=== PATIENT | male | born 1970 | race Caucasian/White ===

== ENCOUNTER → 2020-03-01 | Outpatient (CLI) | payer OTHER ==
[~2020-03-01] MED LIST: CEPH500 PO; GLIM2 PO; SITA25T2 PO
[2020-03-01 17:46] LABS: BASOPHILS ABSOLUTE AUTO 0.05 K/mm3 (0.00-0.23); BASOPHILS PERCENT AUTO 1 % (0-2); EOSINOPHILS ABSOLUTE AUTO 0.07 K/mm3 (0.00-0.68); EOSINOPHILS PERCENT AUTO 1 % (0-6); Hematocrit 44.2 % (37.0-53.0); Hemoglobin 14.4 g/dL (13.5-17.5); IMMATURE GRAN ABSOLUTE AUTO 0.04 K/mm3 (0.00-0.10); IMMATURE GRAN PERCENT AUTO 1 % (0-1); LYMPHOCYTES ABSOLUTE AUTO 1.18 K/mm3 (0.84-5.20); LYMPHOCYTES PERCENT AUTO 14 % (21-46); MONOCYTES ABSOLUTE AUTO 0.59 K/mm3 (0.16-1.47); MONOCYTES PERCENT AUTO 7 % (4-13); Mean Corpuscular HGB 28.6 pg (26.0-34.0); Mean Corpuscular HGB Conc 32.6 g/dL (31.5-36.5); Mean Corpuscular Volume 88 fL (80-100); Mean Platelet Volume 10.4 fL (9.1-12.4); NEUTROPHILS ABSOLUTE AUTO 6.32 K/mm3 (1.96-9.15); NEUTROPHILS PERCENT AUTO 77 % (41-73); Platelet Count 291 K/mm3 (150-400); RDW Coefficient Variation 12.4 % (11.7-14.2); Red Blood Cell Count 5.03 M/mm3 (4.30-5.90); White Blood Cell Count 8.25 K/mm3 (4.00-11.30)
[2020-03-01 18:09] LABS: Alanine Aminotransfer (ALT/SGP 34 U/L (12-78); Albumin, Blood 3.6 g/dL (3.4-5.0); Alk Phos 103 U/L (50-136); Anion Gap 8 mmol/L (6-16); Aspartate Aminotrans (AST/SGOT 18 U/L (12-37); Bilirubin, Total 0.4 mg/dL (0.1-1.0); Blood Urea Nitrogen 20 mg/dL (8-24); Bun/Creatinine Ratio 33.3 (12.0-20.0); CHOL/HDL RATIO 4.5; CO2, Blood 29 mmol/L (21-32); Calcium, Blood 8.8 mg/dL (8.5-10.1); Chloride, Blood 94 mmol/L (98-108); Cholesterol 233 mg/dL (50-200); Globulin, Blood 3.5 g/dL (2.2-4.0); Glomerular Filtration Rate >60 (60-); HDL Cholesterol 52 mg/dL (>39); LDL/HDL RATIO 2.2; Low Density Lipoprotein Chol 117 mg/dL (0-110); Potassium, Blood 4.6 mmol/L (3.5-5.5); Sodium, Blood 131 mmol/L (136-145); Total Protein, Blood 7.1 g/dL (6.4-8.2); Triglycerides 321 mg/dL (30-160); Very Low Density Lipoprot Chol 64 mg/dL (6-32)
[2020-03-01 18:11] LABS: Glucose, Blood 549 mg/dL (70-99)
== END | disposition home or self-care (01) ==
LOC: LAB SHORT 14:01 → LAB 14:01
PROVIDERS: Nurse Practitioner Family
DX: S11.90XA Unspecified open wound of unspecified part of neck, initial encounter (principal); S81.802A Unspecified open wound, left lower leg, initial encounter; S81.801A Unspecified open wound, right lower leg, initial encounter; S61.502A Unspecified open wound of left wrist, initial encounter; E11.65 Type 2 diabetes mellitus with hyperglycemia
CPT/HCPCS: 80053; 80061; 85025; 87070; 87077; 87147; 87186; 87205

== ENCOUNTER → 2020-09-19 | Outpatient (CLI) | payer OTHER ==
[~2020-09-19] MED LIST changes: +ACET325 PO; +ASPI81CH PO; +BANATROL PLUS1 EAC1 PO; +BASAGLAR K100 UNIT/6 SC; +BASAGLAR K100 UNIT/7; +CEFU500T30 PO; +CHOLESTYRAMI239.4 G1 PO; +CIPR500 PO; +CREON DR 12,001 EACH PO; +FLUDROCORTISON0.1 M1 PO; +FURO40 PO; +FUROSEMIDE40 MG PO; +GABA100 PO; +GLIP10ER PO; +IRON18 MG PO; +KLOR-CON 1010 ME1 PO; +LEVEMIR FL100 UNIT/2 SC; +LOPERAMIDE2 M3 PO; +METO25 PO; +MULTI-VITAMIN1 EAC2 PO; +NEURONTIN300 MG PO; +Novolog100 UNIT/2 SC; +POTCHL20ER PO; +TAMSULOSIN HCL0.4 M1 PO; +Vitamin C100 M1 PO
[2020-09-21 15:10] LABS: ADENOVIRUS F 40/41 Not Detected (Not Detected); ASTROVIRUS Not Detected (Not Detected); C DIFFICILE TOXIN A/B Detected (Not Detected); CRYPTOSPORIDIUM Not Detected (Not Detected); CYCLOSPORA CAYETANENSIS Not Detected (Not Detected); ENTAMOEBA HISTOLYTICA Not Detected (Not Detected); ENTEROAGGREGATIVE E COLI Not Detected (Not Detected); ENTEROPATHOGENIC E COLI Not Detected (Not Detected); ENTEROTOXIGENIC E COLI Not Detected (Not Detected); GIARDIA LAMBLIA Not Detected (Not Detected); NOROVIRUS GI/GII Not Detected (Not Detected); PLESIOMONAS SHIGELLOIDES Not Detected (Not Detected); ROTAVIRUS A Not Detected (Not Detected); SALMONELLA Not Detected (Not Detected); SAPOVIRUS Not Detected (Not Detected); SHIGA-TOXIN-PRODUCING E COLI Not Detected (Not Detected); SHIGELLA/ENTEROINVASIVE E COLI Not Detected (Not Detected); VIBRIO Not Detected (Not Detected); VIBRIO CHOLERAE Not Detected (Not Detected); YERSINIA ENTEROCOLITICA Not Detected (Not Detected)
== END | disposition home or self-care (01) ==
LOC: LAB SHORT 13:04 → LAB 13:04
PROVIDERS: Internal Medicine Gastroenterology
DX: R19.7 Diarrhea, unspecified (principal)
CPT/HCPCS: 0097U

== ENCOUNTER → 2020-11-06 | Outpatient (CLI) | payer BC, OTHER | LOC: LAB SHORT 10:25 → LAB 10:25 | DX: K51.90 Ulcerative colitis, unspecified, without complications (principal) | CPT/HCPCS: 87493 ==

== ENCOUNTER 2020-11-14 07:52 | Day surgery (SDC) | payer BC, SELFPAY ==
[~2020-11-14] VITALS: Ht 172.7 cm; Wt 66.2 kg
[~2020-11-14 07:52] MED LIST changes: -ACET325 PO; -ASPI81CH PO; -BANATROL PLUS1 EAC1 PO; -BASAGLAR K100 UNIT/6 SC; -CEFU500T30 PO; -CHOLESTYRAMI239.4 G1 PO; -CIPR500 PO; -CREON DR 12,001 EACH PO; -FLUDROCORTISON0.1 M1 PO; -FURO40 PO; -FUROSEMIDE40 MG PO; -GABA100 PO; -IRON18 MG PO; -KLOR-CON 1010 ME1 PO; -LEVEMIR FL100 UNIT/2 SC; -LOPERAMIDE2 M3 PO; -METO25 PO; -MULTI-VITAMIN1 EAC2 PO; -NEURONTIN300 MG PO; -POTCHL20ER PO; -TAMSULOSIN HCL0.4 M1 PO; -Vitamin C100 M1 PO
[2020-11-14] MEDS ORDERED: GABA100 PO (08:18)
--- NOTE | 2020-11-14 08:57 | NUR ---
11/14/20 0857 Abbey Bates History, Chart, Medications and Allergies reviewed before start of procedure.PATIENT DETERMINED TO BE ASA APPROPRIATE FOR PROPOFOL SEDATION PRIOR TO START OF PROCEDURE BY 3-LEAD EKG REVIEWED WITH PHYSICIAN PRIOR TO START OF PROCEDURE.MONITOR INTACT WITH CONTINUOUS PULSE OXIMETRY AND INTERMITTENT BP.
--- NOTE | 2020-11-14 09:54 | NUR ---
Discharge instructions reviewed with patient. Patient verbalizes understanding. Copy given to patient to take home. Patient States Post-Procedure ride home has been arranged.
--- NOTE | 2020-11-14 10:04 | NUR ---
Patient up to Ambulate independently. Gait steady. Discharged via wheelchair to private car for ride home.
[2021-02-11] MEDS ORDERED: MULTI-VITAMIN1 EAC2 PO (01:28)
[2021-02-11] MEDS ORDERED: IRON18 MG PO (01:29)
[2021-02-11] MEDS ORDERED: Vitamin C100 M1 PO (01:29)
[2021-02-13] MEDS ORDERED: BASAGLAR K100 UNIT/6 SC (11:43)
[2021-02-13] MEDS ORDERED: ACET325 PO (11:44)
[2021-02-13] MEDS ORDERED: FLUDROCORTISON0.1 M1 PO (11:44)
[2021-02-13] MEDS ORDERED: CREON DR 12,001 EACH PO (11:45)
[2021-02-13] MEDS ORDERED: LOPERAMIDE2 M3 PO (11:45)
[2021-02-13] MEDS ORDERED: CIPR500 PO (11:46)
[2021-02-13] MEDS ORDERED: BANATROL PLUS1 EAC1 PO (11:46)
== END 2020-11-14 10:08 | disposition home or self-care (01) ==
LOC: ORSCMMR 07:52 → ORD 09:00 → ORSCMMR 09:00
PROVIDERS: Internal Medicine Gastroenterology
PROC: 0DBN8ZX Excision of Sigmoid Colon, Via Natural or Artificial Opening Endoscopic, Diagnostic (ICD-10-PCS; principal; 2020-11-14 09:00)
PROC: 0DBC8ZX Excision of Ileocecal Valve, Via Natural or Artificial Opening Endoscopic, Diagnostic (ICD-10-PCS; principal; 2020-11-14 09:00)
PROC: 0DBK8ZX Excision of Ascending Colon, Via Natural or Artificial Opening Endoscopic, Diagnostic (ICD-10-PCS; principal; 2020-11-14 09:00)
PROC: 0DBL8ZX Excision of Transverse Colon, Via Natural or Artificial Opening Endoscopic, Diagnostic (ICD-10-PCS; principal; 2020-11-14 09:00)
DX: R19.7 Diarrhea, unspecified (principal); D12.2 Benign neoplasm of ascending colon; D12.3 Benign neoplasm of transverse colon; D12.5 Benign neoplasm of sigmoid colon; E11.9 Type 2 diabetes mellitus without complications; I10 Essential (primary) hypertension; E78.1 Pure hyperglyceridemia; Z79.899 Other long term (current) drug therapy
CPT/HCPCS: 82947; 88305; J2250; J2704; J7120

== ENCOUNTER 2021-01-17 15:22 | Emergency (ER) | payer BC, OTHER ==
[~2021-01-17] VITALS: Ht 172.7 cm; Wt 63.5 kg
[~2021-01-17 15:22] MED LIST changes: +GABA100 PO
[2021-01-17] MEDS ORDERED: ASPI81CH PO (17:16)
[2021-02-11] MEDS ORDERED: MULTI-VITAMIN1 EAC2 PO (01:28)
[2021-02-11] MEDS ORDERED: Vitamin C100 M1 PO (01:29)
[2021-02-11] MEDS ORDERED: IRON18 MG PO (01:29)
[2021-02-13] MEDS ORDERED: BASAGLAR K100 UNIT/6 SC (11:43)
[2021-02-13] MEDS ORDERED: FLUDROCORTISON0.1 M1 PO (11:44)
[2021-02-13] MEDS ORDERED: ACET325 PO (11:44)
[2021-02-13] MEDS ORDERED: LOPERAMIDE2 M3 PO (11:45)
[2021-02-13] MEDS ORDERED: CREON DR 12,001 EACH PO (11:45)
[2021-02-13] MEDS ORDERED: BANATROL PLUS1 EAC1 PO (11:46)
[2021-02-13] MEDS ORDERED: CIPR500 PO (11:46)
== END 2021-01-17 17:45 | disposition home or self-care (01) ==
LOC: ER 15:22
DX: I82.812 Embolism and thrombosis of superficial veins of left lower extremity (principal); E11.9 Type 2 diabetes mellitus without complications; Z79.4 Long term (current) use of insulin; Z79.82 Long term (current) use of aspirin
CPT/HCPCS: 93971; 99284-25

== ENCOUNTER 2021-02-05 17:43 | Emergency (ER) | payer BC ==
[~2021-02-05] VITALS: Ht 172.7 cm; Wt 64.0 kg
[~2021-02-05 17:43] MED LIST changes: +ASPI81CH PO
[2021-02-05 18:27] LABS: Source, Urine Catheter
[2021-02-05] MEDS ORDERED: NEURONTIN300 MG PO (18:32)
[2021-02-05] MEDS ORDERED: FUROSEMIDE40 MG PO (18:33)
[2021-02-05 18:34] LABS: Appearance, Urine Cloudy (Clear); Bilirubin, Urine Neg (Neg); Blood, Urine 3+ (Neg); Color, Urine Yellow (P-Yellow); Glucose Qualitative, Urine 4+ (Neg); Ketones, Urine Neg (Neg); Leukocyte Esterase, Urine 3+ (Neg); Nitrite, Urine Pos (Neg); Protein, Urine 3+ (Neg); Urobilinogen, Urine NORM (Normal)
[2021-02-05] MEDS ORDERED: LEVEMIR FL100 UNIT/2 SC (18:35)
[2021-02-05 18:36] LABS: BASOPHILS ABSOLUTE AUTO 0.07 K/mm3 (0.00-0.23); BASOPHILS PERCENT AUTO 1 % (0-2); EOSINOPHILS ABSOLUTE AUTO 0.16 K/mm3 (0.00-0.68); EOSINOPHILS PERCENT AUTO 1 % (0-6); Hematocrit 36.2 % (37.0-53.0); Hemoglobin 11.9 g/dL (13.5-17.5); IMMATURE GRAN ABSOLUTE AUTO 0.08 K/mm3 (0.00-0.10); IMMATURE GRAN PERCENT AUTO 1 % (0-1); LYMPHOCYTES ABSOLUTE AUTO 1.42 K/mm3 (0.84-5.20); LYMPHOCYTES PERCENT AUTO 11 % (21-46); MONOCYTES ABSOLUTE AUTO 0.84 K/mm3 (0.16-1.47); MONOCYTES PERCENT AUTO 6 % (4-13); Mean Corpuscular HGB 27.8 pg (26.0-34.0); Mean Corpuscular HGB Conc 32.9 g/dL (31.5-36.5); Mean Corpuscular Volume 85 fL (80-100); Mean Platelet Volume 8.7 fL (9.1-12.4); NEUTROPHILS ABSOLUTE AUTO 10.92 K/mm3 (1.96-9.15); NEUTROPHILS PERCENT AUTO 81 % (41-73); Platelet Count 601 K/mm3 (150-400); RDW Coefficient Variation 12.6 % (11.7-14.2); RDW Standard Deviation 39.3 fL (35.1-46.3); Red Blood Cell Count 4.28 M/mm3 (4.30-5.90); White Blood Cell Count 13.49 K/mm3 (4.00-11.30)
[2021-02-05] MEDS ORDERED: TAMSULOSIN HCL0.4 M1 PO (18:36)
[2021-02-05] MEDS ORDERED: KLOR-CON 1010 ME1 PO (18:36)
[2021-02-05 18:42] LABS: White Blood Cells, Urine TNTC /hpf (0-5)
[2021-02-05 18:43] LABS: Bacteria Many /hpf; Red Blood Cells, Urine Rare /hpf (0-2); Squamous Epithelial Cells Not Seen /hpf (Few); Triple Phosphate Crystals Mod /hpf
[2021-02-05 19:08] LABS: Alanine Aminotransfer (ALT/SGP 34 U/L (12-78); Albumin, Blood 2.5 g/dL (3.4-5.0); Albumin/Globulin Ratio 0.6 (0.8-1.8); Alk Phos 84 U/L (50-136); Anion Gap 4 mmol/L (6-16); Aspartate Aminotrans (AST/SGOT 13 U/L (12-37); Bilirubin, Total 0.1 mg/dL (0.1-1.0); Blood Urea Nitrogen 26 mg/dL (8-24); Bun/Creatinine Ratio 31.7 (12.0-20.0); CO2, Blood 28 mmol/L (21-32); Calcium, Blood 8.5 mg/dL (8.5-10.1); Chloride, Blood 102 mmol/L (98-108); Creatinine, Blood 0.82 mg/dL (0.60-1.20); Globulin, Blood 4.3 g/dL (2.2-4.0); Glomerular Filtration Rate >60 (60-); Glucose, Blood 384 mg/dL (70-99); Potassium, Blood 4.7 mmol/L (3.5-5.5); Sodium, Blood 134 mmol/L (136-145); Total Protein, Blood 6.8 g/dL (6.4-8.2)
[2021-02-05] MEDS ORDERED: CEFU500T30 PO (19:30)
== END 2021-02-05 19:46 | disposition home or self-care (01) ==
LOC: ER 17:43
PROVIDERS: Physician Assistant
DX: I95.1 Orthostatic hypotension (principal); T83.511A Infection and inflammatory reaction due to indwelling urethral catheter, initial encounter; Z88.8 Allergy status to other drugs, medicaments and biological substances; E11.65 Type 2 diabetes mellitus with hyperglycemia; Z79.4 Long term (current) use of insulin; Z79.899 Other long term (current) drug therapy
CPT/HCPCS: 36415; 51702; 80053; 81001; 82947; 83605; 85025; 87077; 87086; 87186; 93005; 93010; 96360; 99285-25; A9270; J7120

== ENCOUNTER 2021-03-02 05:14 | Inpatient (IN) | payer BC, OTHER ==
[~2021-03-02] VITALS: Ht 172.7 cm; Wt 75.0 kg
[~2021-03-02 05:14] MED LIST changes: +ACET325 PO; +BANATROL PLUS1 EAC1 PO; +BASAGLAR K100 UNIT/6 SC; +CEFU500T30 PO; +CIPR500 PO; +CREON DR 12,001 EACH PO; +FLUDROCORTISON0.1 M1 PO; +FUROSEMIDE40 MG PO; +IRON18 MG PO; +KLOR-CON 1010 ME1 PO; +LEVEMIR FL100 UNIT/2 SC; +LOPERAMIDE2 M3 PO; +MULTI-VITAMIN1 EAC2 PO; +NEURONTIN300 MG PO; +TAMSULOSIN HCL0.4 M1 PO; +Vitamin C100 M1 PO
[2021-03-02 05:58] LABS: BASOPHILS ABSOLUTE AUTO 0.04 K/mm3 (0.00-0.23); BASOPHILS PERCENT AUTO 1 % (0-2); EOSINOPHILS ABSOLUTE AUTO 0.24 K/mm3 (0.00-0.68); EOSINOPHILS PERCENT AUTO 5 % (0-6); Hematocrit 33.1 % (37.0-53.0); Hemoglobin 10.4 g/dL (13.5-17.5); IMMATURE GRAN ABSOLUTE AUTO 0.01 K/mm3 (0.00-0.10); IMMATURE GRAN PERCENT AUTO 0 % (0-1); LYMPHOCYTES ABSOLUTE AUTO 0.94 K/mm3 (0.84-5.20); LYMPHOCYTES PERCENT AUTO 18 % (21-46); MONOCYTES ABSOLUTE AUTO 0.53 K/mm3 (0.16-1.47); MONOCYTES PERCENT AUTO 10 % (4-13); Mean Corpuscular HGB 28.2 pg (26.0-34.0); Mean Corpuscular HGB Conc 31.4 g/dL (31.5-36.5); Mean Corpuscular Volume 90 fL (80-100); Mean Platelet Volume 9.4 fL (9.1-12.4); NEUTROPHILS PERCENT AUTO 66 % (41-73); Platelet Count 236 K/mm3 (150-400); RDW Coefficient Variation 16.4 % (11.7-14.2); RDW Standard Deviation 53.3 fL (35.1-46.3); Red Blood Cell Count 3.69 M/mm3 (4.30-5.90); White Blood Cell Count 5.16 K/mm3 (4.00-11.30)
[2021-03-02 06:18] LABS: Alanine Aminotransfer (ALT/SGP 87 U/L (12-78); Albumin, Blood 2.9 g/dL (3.4-5.0); Albumin/Globulin Ratio 0.9 (0.8-1.8); Alk Phos 100 U/L (50-136); Anion Gap 3 mmol/L (6-16); Aspartate Aminotrans (AST/SGOT 28 U/L (12-37); Bilirubin, Total 0.4 mg/dL (0.1-1.0); Blood Urea Nitrogen 19 mg/dL (8-24); Bun/Creatinine Ratio 25.3 (12.0-20.0); CO2, Blood 30 mmol/L (21-32); Calcium, Blood 8.7 mg/dL (8.5-10.1); Chloride, Blood 108 mmol/L (98-108); Creatinine, Blood 0.75 mg/dL (0.60-1.20); Globulin, Blood 3.3 g/dL (2.2-4.0); Glomerular Filtration Rate >60 (60-); Glucose, Blood 207 mg/dL (70-99); Potassium, Blood 3.6 mmol/L (3.5-5.5); Sodium, Blood 141 mmol/L (136-145); Total Protein, Blood 6.2 g/dL (6.4-8.2); Troponin I <0.015 ng/mL (0.000-0.040)
[2021-03-02 08:10] LABS: SARS-Cov-2 (COVID-19) PCR, MMC NEGATIVE (NEGATIVE)
[2021-03-02 17:29] LABS: U Amphetamine Screen Not Detected; U Barbituate Screen Not Detected; U Benzodiazapine Screen Not Detected; U Buprenorphine Screen Not Detected; U Cannabinoids Screen Not Detected; U Cocaine Screen Not Detected; U Methadone Screen Not Detected; U Methamphetamine Screen Not Detected; U Opiates Screen Not Detected; U Oxycodone Screen Not Detected; U Phencyclidine Screen Not Detected; U Propoxyphene Screen Not Detected
--- NOTE | 2021-03-02 18:45 | NUR ---
SHIFT SUMMARY PT ADMITTED TO UNIT AT 1028 THIS SHIFT FROM ED. RECEIVED REPORT FROM RADHA PACK. PT A&OX4, ABLE TO MAKE NEEDS KNOWN. PLEASANT AND COOPERATIVE TO CARE. NO C/O PAIN OR ANY DISCOMFORT. PT DENIES CP / N&V. PT CONT TO C/O SOB WITH EXERTION, PT ON O2 4LPM VIA NC. SATS >90%, LSCTA, OCCASSIONAL DRY COUGH NOTED. PT WITH AT BEDSIDE THIS SHIFT. PT SELF CATH's NEEDED FOR RETENTION. PT DENIES DYSURIA OR ANY OTHER DISCOMFORT. PT CALM AND RESTED IN BED AT THIS TIME. BED AT LOWEST POSITION. CALL LIGHT WITHIN REACH.
[2021-03-03 05:02] LABS: BASOPHILS ABSOLUTE AUTO 0.05 K/mm3 (0.00-0.23); BASOPHILS PERCENT AUTO 1 % (0-2); EOSINOPHILS ABSOLUTE AUTO 0.23 K/mm3 (0.00-0.68); EOSINOPHILS PERCENT AUTO 4 % (0-6); Hematocrit 33.2 % (37.0-53.0); Hemoglobin 10.3 g/dL (13.5-17.5); IMMATURE GRAN ABSOLUTE AUTO 0.02 K/mm3 (0.00-0.10); IMMATURE GRAN PERCENT AUTO 0 % (0-1); LYMPHOCYTES ABSOLUTE AUTO 1.08 K/mm3 (0.84-5.20); LYMPHOCYTES PERCENT AUTO 20 % (21-46); MONOCYTES ABSOLUTE AUTO 0.63 K/mm3 (0.16-1.47); MONOCYTES PERCENT AUTO 12 % (4-13); Mean Corpuscular HGB 28.3 pg (26.0-34.0); Mean Corpuscular Volume 91 fL (80-100); Mean Platelet Volume 11.3 fL (9.1-12.4); NEUTROPHILS ABSOLUTE AUTO 3.48 K/mm3 (1.96-9.15); NEUTROPHILS PERCENT AUTO 63 % (41-73); Platelet Count 185 K/mm3 (150-400); RDW Coefficient Variation 16.5 % (11.7-14.2); RDW Standard Deviation 54.8 fL (35.1-46.3); Red Blood Cell Count 3.64 M/mm3 (4.30-5.90); White Blood Cell Count 5.49 K/mm3 (4.00-11.30)
--- NOTE | 2021-03-03 05:22 | NUR ---
HISTORIC PRESERVATIONIST SUMMARY NO ACUTE CHANGES THIS SHIFT. PT AAOX4 AND PLEASANT. INDEPENDENT IN ROOM. REMAINS ON 4L O2 VIA NC. PITTING EDEMA STILL PRESENT IN BLE, RICKY HOSE IN PLACE. MEDICATED FOR PAIN X1 WITH TYLENOL AT BEDTIME. PT HAS SLEPT WELL SINCE. ADDED HUMIDIFIER TO O2 DRY AIR CAUSED BRIEF NOSE BLEED. VSS, WILL CONTINUE TO MONITOR.
[2021-03-03 05:27] LABS: Alanine Aminotransfer (ALT/SGP 64 U/L (12-78); Albumin, Blood 2.6 g/dL (3.4-5.0); Albumin/Globulin Ratio 0.8 (0.8-1.8); Alk Phos 87 U/L (50-136); Anion Gap 4 mmol/L (6-16); Aspartate Aminotrans (AST/SGOT 11 U/L (12-37); Bilirubin, Total 0.2 mg/dL (0.1-1.0); Blood Urea Nitrogen 19 mg/dL (8-24); Bun/Creatinine Ratio 23.4 (12.0-20.0); CO2, Blood 30 mmol/L (21-32); Calcium, Blood 7.9 mg/dL (8.5-10.1); Chloride, Blood 108 mmol/L (98-108); Creatinine, Blood 0.81 mg/dL (0.60-1.20); Globulin, Blood 3.3 g/dL (2.2-4.0); Glomerular Filtration Rate >60 (60-); Glucose, Blood 225 mg/dL (70-99); Potassium, Blood 3.8 mmol/L (3.5-5.5); Sodium, Blood 142 mmol/L (136-145); Total Protein, Blood 5.9 g/dL (6.4-8.2)
--- NOTE | 2021-03-03 17:58 | NUR ---
SHIFT SUMMARY PT A&OX4, ABLE TO MAKE NEEDS KNOWN. PLEASANT AND COOPERATIVE TO CARE. NO ACUTE CHANGES NOTED TO PT THIS SHIFT. NO C/O PAIN OR ANY DISCOMFORT, DENIES CP, SOB, OR N&V. PT CONTINUES ON HUMIDIFIED O2 4LPM VIA NC, SATS >92%. SELF CATHS NEEDED FOR RETENTION. RICKY HOSE IN PLACE TO BLE, EDEMA TO AA PRESENT. PT's AT BEDSIDE THIS AFTERNOON. BED AT LOWEST POSITION, CALL LIGHT WITHIN REACH.
[2021-03-04 05:15] LABS: Alanine Aminotransfer (ALT/SGP 57 U/L (12-78); Albumin, Blood 2.8 g/dL (3.4-5.0); Albumin/Globulin Ratio 0.8 (0.8-1.8); Alk Phos 95 U/L (50-136); Anion Gap 4 mmol/L (6-16); Aspartate Aminotrans (AST/SGOT 10 U/L (12-37); Bilirubin, Total 0.3 mg/dL (0.1-1.0); Blood Urea Nitrogen 16 mg/dL (8-24); Bun/Creatinine Ratio 23.6 (12.0-20.0); CO2, Blood 32 mmol/L (21-32); Calcium, Blood 8.1 mg/dL (8.5-10.1); Chloride, Blood 103 mmol/L (98-108); Creatinine, Blood 0.68 mg/dL (0.60-1.20); Globulin, Blood 3.7 g/dL (2.2-4.0); Glomerular Filtration Rate >60 (60-); Glucose, Blood 195 mg/dL (70-99); Potassium, Blood 3.6 mmol/L (3.5-5.5); Sodium, Blood 139 mmol/L (136-145); Total Protein, Blood 6.5 g/dL (6.4-8.2)
--- NOTE | 2021-03-04 06:04 | NUR ---
THERMO PROCESSOR SUMMARY PT AAOX4 AND INDEPENDENT IN ROOM. COMPLAINED OF MULITPLE EPISODES OF LOOSE STOOLS TONIGHT. NOTIFIED DR ORTIZ AND RECIEVED ORDER FOR IMODIUM PRN. NO OTHER COMPLAINTS FROM PT, HAS SLEPT WELL. VSS, WILL CONTINUE TO MONITOR.
--- NOTE | 2021-03-04 17:37 | NUR ---
SHIFT SUMMARY PT ALERT AND INDEPENDENT IN THE ROOM. SELF CATH NEEDED. PT STILL DIURESING. PT AT BEDSIDE. PT DENIES PAIN, MEDICATED FOR LOOSE STOOL TODAY. PT DENIES CP OR SOB. PT IS ON 4L O2. PT IS ON TELE NSR @ 80S. BED IS IN THE LOWEST POSITION AND CALL LIGHT WITHIN REACH
--- NOTE | 2021-03-05 04:45 | NUR ---
SHIFT SUMMARY NO ACUTE CHANGES TO REPORT THIS SHIFT. PT HAS RESTED MOST OF THE NIGHT, HE DENIES SOB. RESP E/U ON RA. OCCASIONAL NONPRODUCTIVE COUGH. SWELLING IN BLE IMPROVED SIGNIFICANTLY, PT RECEIVING IV LASIKS ORDERED. PT PULLED IV BY MISTAKE THIS SHIFT AFTER TAKING A SHOWER, NEW IV ESTABLISHED. PT INDEPENDENT IN THE ROOM, A/OX4. NSR ON TELE. BED IN LOWEST POSITION, CALL LIGHT WITHIN REACH.
[2021-03-05 05:31] LABS: Albumin, Blood 2.8 g/dL (3.4-5.0); Anion Gap 5 mmol/L (6-16); Blood Urea Nitrogen 16 mg/dL (8-24); CO2, Blood 32 mmol/L (21-32); Calcium, Blood 8.2 mg/dL (8.5-10.1); Chloride, Blood 101 mmol/L (98-108); Creatinine, Blood 0.84 mg/dL (0.60-1.20); Glomerular Filtration Rate >60 (60-); Glucose, Blood 202 mg/dL (70-99); Phosphorus, Blood 4.1 mg/dL (2.5-4.9); Potassium, Blood 3.8 mmol/L (3.5-5.5); Sodium, Blood 138 mmol/L (136-145)
--- NOTE | 2021-03-05 14:58 | NUR ---
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 Dominguez lives with his , and has had a hard time finding steady employment since being let go from a 20 year history at a local [employer]. He states he has had had to go without insulin occasionally. Dominguez has DM type 2, BPH, recurring syncopal episodes with unknown etiology,and he currently denies any pain. Will continue to monitor for neuropathy. He currently has insurance, so hopful he will continue to follow his current regimen. He denies pain at this time.
--- NOTE | 2021-03-05 17:53 | NUR ---
SHIFT SUMMARY PT ALERT AND INDEPENDENT IN THE ROOM. PT STILL HAVING SOME LOOSE BM; DENIES PAIN. PT IS NOW RA-SATS ABOVE 90S. AT BEDSIDE. DC'D TELE. NO OTHER CONCERNS NOTED DURING THIS SHIFT. BED IS IN THEE LOWEST POSITION AND CALL LIGHT WITHIN REACH
--- NOTE | 2021-03-06 04:14 | NUR ---
SHIFT SUMMARY PT HAS RESTED MOST OF THE NIGHT AND HAS DENIED NEEDS. PT SATS MAINTAINED ON RA WHILE AWAKE BUT DROP INTO THE UPPER 80'S WHEN SLEEPING. 2L O2 PLACE DURING THE NIGHT. PT CONTINUES TO HAVE DRY NONPRODUCTIVE COUGH. SWELLING TO BLE REMAINS IMPROVED. VITALS STABLE. PLAN IS FOR DC TODAY. BED IN LOWEST POSITION, CALL LIGHT WITHIN REACH.
[2021-03-06 04:57] LABS: Albumin, Blood 2.9 g/dL (3.4-5.0); Anion Gap 2 mmol/L (6-16); Blood Urea Nitrogen 19 mg/dL (8-24); Bun/Creatinine Ratio 23.1 (12.0-20.0); CO2, Blood 32 mmol/L (21-32); Calcium, Blood 8.3 mg/dL (8.5-10.1); Chloride, Blood 104 mmol/L (98-108); Creatinine, Blood 0.82 mg/dL (0.60-1.20); Glomerular Filtration Rate >60 (60-); Glucose, Blood 227 mg/dL (70-99); Phosphorus, Blood 3.6 mg/dL (2.5-4.9); Potassium, Blood 4.1 mmol/L (3.5-5.5); Sodium, Blood 138 mmol/L (136-145)
[2021-03-06] MEDS ORDERED: CHOLESTYRAMI239.4 G1 PO (10:11)
[2021-03-06] MEDS ORDERED: FURO40 PO (10:12)
[2021-03-06] MEDS ORDERED: POTCHL20ER PO (10:14)
[2021-03-06] MEDS ORDERED: METO25 PO (10:14)
--- NOTE | 2021-03-06 15:07 | NUR ---
DISCHARGE NOTE PT IV REMOVED BY THIS RN. DC DOCUMENTATION REVIEWED WITH PT WHO VERBALIZED AN UNDERSTANDING. PT IS AO. PT DRESSED SELF IN HOME CLOTHING. PT GATHERED BELONGINGS. PT LEFT FACILITY IN WHEELCHAIR WITH ANIMAL ATTENDANTS AND TRAINERS AND BELONGINGS PRESENT. PT HAS LEFT [facility].
== END 2021-03-06 14:30 | disposition home or self-care (01) | DRG 291 ==
LOC: ER 05:14 → MEDS 08:52 → ENPENDDIS 03-06 09:47 → MEDS 03-06 14:30
PROVIDERS: Emergency Medicine; Family Medicine; Internal Medicine; Nurse Practitioner Acute Care; Student in an Organized Health Care Education/Training Program; ADMIT Internal Medicine
DX: I11.0 Hypertensive heart disease with heart failure (principal); I50.21 Acute systolic (congestive) heart failure; J96.01 Acute respiratory failure with hypoxia; I82.812 Embolism and thrombosis of superficial veins of left lower extremity; Z66 Do not resuscitate; Z20.822 Contact with and (suspected) exposure to COVID-19; R19.7 Diarrhea, unspecified; N40.0 Benign prostatic hyperplasia without lower urinary tract symptoms; E78.5 Hyperlipidemia, unspecified; E11.40 Type 2 diabetes mellitus with diabetic neuropathy, unspecified; I82.562 Chronic embolism and thrombosis of left calf muscular vein; Z88.8 Allergy status to other drugs, medicaments and biological substances
CPT/HCPCS: 36415; 71045; 71260; 72141; 80048; 80053; 80069; 82947; 83036; 83605; 83735; 83880; 84145; 84484; 85025; 87040; 93005; 93010; 93971; 94761; 96365; 96366; 96367; 97110; 97161; 99285-25; A9270; J0456; J0696; J1650; J1940; J7050; Q9967; U0004

== ENCOUNTER 2021-05-14 21:55 | Observation (INO) | payer BC, OTHER ==
[~2021-05-14] VITALS: Ht 172.7 cm; Wt 75.5 kg
[~2021-05-14 21:55] MED LIST changes: +CHOLESTYRAMI239.4 G1 PO; +FURO40 PO; +METO25 PO; +POTCHL20ER PO
[2021-05-14 22:23] LABS: BASOPHILS ABSOLUTE AUTO 0.05 K/mm3 (0.00-0.23); BASOPHILS PERCENT AUTO 1 % (0-2); EOSINOPHILS ABSOLUTE AUTO 0.19 K/mm3 (0.00-0.68); EOSINOPHILS PERCENT AUTO 3 % (0-6); Hematocrit 39.6 % (37.0-53.0); Hemoglobin 13.1 g/dL (13.5-17.5); IMMATURE GRAN ABSOLUTE AUTO 0.02 K/mm3 (0.00-0.10); IMMATURE GRAN PERCENT AUTO 0 % (0-1); LYMPHOCYTES ABSOLUTE AUTO 1.57 K/mm3 (0.84-5.20); LYMPHOCYTES PERCENT AUTO 21 % (21-46); MONOCYTES ABSOLUTE AUTO 0.78 K/mm3 (0.16-1.47); MONOCYTES PERCENT AUTO 11 % (4-13); Mean Corpuscular HGB 27.8 pg (26.0-34.0); Mean Corpuscular HGB Conc 33.1 g/dL (31.5-36.5); Mean Corpuscular Volume 84 fL (80-100); Mean Platelet Volume 9.2 fL (9.1-12.4); NEUTROPHILS ABSOLUTE AUTO 4.85 K/mm3 (1.96-9.15); NEUTROPHILS PERCENT AUTO 65 % (41-73); Platelet Count 234 K/mm3 (150-400); RDW Coefficient Variation 14.2 % (11.7-14.2); RDW Standard Deviation 43.8 fL (35.1-46.3); Red Blood Cell Count 4.72 M/mm3 (4.30-5.90); White Blood Cell Count 7.46 K/mm3 (4.00-11.30)
[2021-05-14] MEDS ORDERED: LEVEMIR100 UNIT/1 SC (22:48)
[2021-05-14 22:49] LABS: Alanine Aminotransfer (ALT/SGP 34 U/L (12-78); Albumin, Blood 3.3 g/dL (3.4-5.0); Alk Phos 82 U/L (50-136); Anion Gap 3 mmol/L (6-16); Aspartate Aminotrans (AST/SGOT 11 U/L (12-37); Bilirubin, Total 0.2 mg/dL (0.1-1.0); Blood Urea Nitrogen 13 mg/dL (8-24); Bun/Creatinine Ratio 13.5 (12.0-20.0); CO2, Blood 32 mmol/L (21-32); Calcium, Blood 8.2 mg/dL (8.5-10.1); Chloride, Blood 109 mmol/L (98-108); Creatinine, Blood 0.96 mg/dL (0.60-1.20); Globulin, Blood 3.3 g/dL (2.2-4.0); Glomerular Filtration Rate >60 (60-); Glucose, Blood 108 mg/dL (70-99); Potassium, Blood 3.7 mmol/L (3.5-5.5); Sodium, Blood 144 mmol/L (136-145); Total Protein, Blood 6.6 g/dL (6.4-8.2); Troponin I <0.015 ng/mL (0.000-0.040)
[2021-05-14] MEDS ORDERED: HUMALOG100 UNIT/1 SC (22:49)
[2021-05-15] MEDS ORDERED: LOPE2C PO (01:23)
--- NOTE | 2021-05-15 04:48 | NUR ---
SHIFT SUMMARY PT ER ADMIT THIS SHIFT FOR CHEST PAIN, CHEST PAIN HAS RESOLVED AND HE HAS DENIED CHEST PAIN SINCE ARRIVING TO THE FLOOR. TELE IN PLACE WITH NSR. PT INDEPENDENT IN THE ROOM. SELF CATHS, SUPPLIES PROVIDED TO PT. O2 2L AT BEDTIME, PT BASELINE. PLAN IS FOR STRESS TEST TODAY. ADMISSION COMPLETE. BED IN LOWEST POSITION, CALL LIGHT WITHIN REACH.
--- NOTE | 2021-05-15 08:54 | NUR ---
pt laying in bed awake a/ox3, cooperative with care, follows commands well, denies pain, lungs are clear dim in bases, resp even and unlabored, no cough noted, uses 2liters 02 at hs at home, hrr, tele in place running sr per monitor, see strip, no edema noted, ppp+2, cap refill <3sec, vs stable, afebrile, iv site to lac clear and patent, btx4, abd flat soft nontender, voids without diff, skin c/w/d, maew, audie, call light in reach.
--- NOTE | 2021-05-15 11:06 | NUR ---
pt is angry because the stress test didn't happen at 0800, no one told him it would be at that time, he is a bit irrational, became very angry with operations label clerk drawing blood because he wanted her to draw an outpt test that his pcp ordered and he has not had done yet, she attempted to explain to him that the DrAnkit needs to order it, but he became very angry and refused to allow her to remove the tourniquit. this nurse checked and he removed it. Dr. Kumar was in to see him, he was still angry about the test he wants done. he was able to eat a bit after being injected for his stress test and is calmed down some. call light in reach.
--- NOTE | 2021-05-15 14:48 | NUR ---
pt having stress test. has been calm and cooperative this afternoon.
--- NOTE | 2021-05-15 18:28 | NUR ---
PT GOT VERY NAUSEATED AFTER INJECTION FOR STRESS TEST AND HAD ACTIVE VOMITING, DID NOTIFY DR. SHE CAME TO SEE HIM, GAVE HIM PRN DOSE OF HYDRALAZINE FOR HIGH B/P AND IV ZOFRAN WHICH WAS EFFECTIVE, SLEPT AFTER THAT, AND IS FEELING BETTER NOW, AT BEDSIDE, IS EATING DINNER. DID HAVE DISCHARGE ORDERS ON HIM, DR. LOPEZ SPOKE WITH HIM AND WILL KEEP HIM OVERNIGHT. CALL LIGHT IN REACH.
--- NOTE | 2021-05-16 04:51 | NUR ---
SHIFT SUMMARY A/O, ABLE TO MAKE NEEDS KNOWN. COOPERATIVE WITH CARE. CALLS AND ANSWERS QUESTIONS APPROPRIATELY. NO C/O PAIN/DISCOMFORT. APPEARED TO REST MUCH OF THE NIGHT. ST IN 100's MUCH OF THE NIGHT ON TELE. UP INDEPENDENTLY IN ROOM AND BATHROOM. NO EPISODES OF ABDOMINAL PAIN/EMESIS. NO AUCTE CHANGES NOTED OVERNIGHT. BED REMAINS IN LOWEST POSITION. CALL LIGHT AND BELONGINGS WITHIN REACH. REPORT TO ONCOMING RN.
[2021-05-16] MEDS ORDERED: Prinivil10 MG PO (14:03)
--- NOTE | 2021-05-16 14:56 | NUR ---
DISCHARGE DISCHARGE MEDICATIONS AND INSTRUCTIONS EXPLAINED TO PATIENT AND SPOUSE. THEY STATED UNDERSTANDING. PCP FOLLOW UP SCHEDULED. IV REMOVED WITHOUT ISSUE. BELONGINGS WITH PATIENT. PATIENT TRANSFERED TO PRIVATE VEHICLE VIA WHEELCHAIR.
== END 2021-05-16 14:41 | disposition home or self-care (01) ==
LOC: ER 21:55 → MEDS 23:37
PROVIDERS: Emergency Medicine; ADMIT Family Medicine
DX: R07.9 Chest pain, unspecified (principal); N40.0 Benign prostatic hyperplasia without lower urinary tract symptoms; E11.40 Type 2 diabetes mellitus with diabetic neuropathy, unspecified; I50.30 Unspecified diastolic (congestive) heart failure; E78.5 Hyperlipidemia, unspecified; D64.9 Anemia, unspecified; K52.9 Noninfective gastroenteritis and colitis, unspecified; M79.2 Neuralgia and neuritis, unspecified; R03.0 Elevated blood-pressure reading, without diagnosis of hypertension; R55 Syncope and collapse; R00.0 Tachycardia, unspecified; I95.1 Orthostatic hypotension; Z79.4 Long term (current) use of insulin; Z88.8 Allergy status to other drugs, medicaments and biological substances; Z91.041 Radiographic dye allergy status
CPT/HCPCS: 36415; 71045; 78452; 80053; 82947; 83516; 83880; 84484; 85025; 85379; 93005; 93010; 93017; 96374; 96376; 99285-25; A9270; A9500; G0378; J0360; J0706; J1815; J2405; J2785

== ENCOUNTER → 2021-07-10 | Outpatient (CLI) | payer BC, OTHER ==
[~2021-07-10] MED LIST changes: +HUMALOG100 UNIT/1 SC; +LEVEMIR100 UNIT/1 SC; +LOPE2C PO; +Prinivil10 MG PO
== END | disposition home or self-care (01) ==
LOC: LAB SHORT 09:40 → LAB 09:40
DX: E11.40 Type 2 diabetes mellitus with diabetic neuropathy, unspecified (principal)
CPT/HCPCS: 82043

== ENCOUNTER 2021-07-27 19:01 | Emergency (ER) | payer BC, OTHER ==
[~2021-07-27] VITALS: Ht 172.7 cm; Wt 69.8 kg
[2021-07-27 20:07] LABS: BASOPHILS ABSOLUTE AUTO 0.06 K/mm3 (0.00-0.23); BASOPHILS PERCENT AUTO 1 % (0-2); EOSINOPHILS ABSOLUTE AUTO 0.23 K/mm3 (0.00-0.68); EOSINOPHILS PERCENT AUTO 3 % (0-6); Hematocrit 45.5 % (37.0-53.0); Hemoglobin 15.1 g/dL (13.5-17.5); IMMATURE GRAN ABSOLUTE AUTO 0.02 K/mm3 (0.00-0.10); IMMATURE GRAN PERCENT AUTO 0 % (0-1); LYMPHOCYTES ABSOLUTE AUTO 1.97 K/mm3 (0.84-5.20); LYMPHOCYTES PERCENT AUTO 24 % (21-46); MONOCYTES ABSOLUTE AUTO 0.57 K/mm3 (0.16-1.47); MONOCYTES PERCENT AUTO 7 % (4-13); Mean Corpuscular HGB 28.5 pg (26.0-34.0); Mean Corpuscular HGB Conc 33.2 g/dL (31.5-36.5); Mean Corpuscular Volume 86 fL (80-100); Mean Platelet Volume 9.3 fL (9.1-12.4); NEUTROPHILS ABSOLUTE AUTO 5.47 K/mm3 (1.96-9.15); NEUTROPHILS PERCENT AUTO 66 % (41-73); Platelet Count 308 K/mm3 (150-400); RDW Coefficient Variation 13.4 % (11.7-14.2); RDW Standard Deviation 41.2 fL (35.1-46.3); White Blood Cell Count 8.32 K/mm3 (4.00-11.30)
[2021-07-27 20:10] LABS: Anion Gap 4 mmol/L (6-16); Blood Urea Nitrogen 27 mg/dL (8-24); Bun/Creatinine Ratio 32.2 (12.0-20.0); CO2, Blood 30 mmol/L (21-32); Chloride, Blood 102 mmol/L (98-108); Creatinine, Blood 0.84 mg/dL (0.60-1.20); Glomerular Filtration Rate >60 (60-); Glucose, Blood 211 mg/dL (70-99); Potassium, Blood 4.5 mmol/L (3.5-5.5); Sodium, Blood 136 mmol/L (136-145)
== END 2021-07-27 21:48 | disposition home or self-care (01) ==
LOC: ER 19:01
PROVIDERS: Emergency Medicine
DX: I95.1 Orthostatic hypotension (principal); E11.9 Type 2 diabetes mellitus without complications; Z88.8 Allergy status to other drugs, medicaments and biological substances; Z79.4 Long term (current) use of insulin; Z79.82 Long term (current) use of aspirin; Z79.899 Other long term (current) drug therapy
CPT/HCPCS: 80048; 82947; 85025; 93005; 93010; 99284-25; J7030

== ENCOUNTER 2021-10-18 13:52 | Day surgery (SDC) | payer BC, OTHER | END 2021-10-18 23:44 | disposition home or self-care (01) | LOC: WOUND 13:52 | DX: T22.211A Burn of second degree of right forearm, initial encounter (principal); X08.8XXA Exposure to other specified smoke, fire and flames, initial encounter; S51.811A Laceration without foreign body of right forearm, initial encounter; X58.XXXA Exposure to other specified factors, initial encounter; E11.621 Type 2 diabetes mellitus with foot ulcer; L97.422 Non-pressure chronic ulcer of left heel and midfoot with fat layer exposed; L89.893 Pressure ulcer of other site, stage 3; L89.892 Pressure ulcer of other site, stage 2; I87.2 Venous insufficiency (chronic) (peripheral); E11.51 Type 2 diabetes mellitus with diabetic peripheral angiopathy without gangrene; E11.42 Type 2 diabetes mellitus with diabetic polyneuropathy; Z79.4 Long term (current) use of insulin; I25.10 Atherosclerotic heart disease of native coronary artery without angina pectoris; Z88.8 Allergy status to other drugs, medicaments and biological substances | CPT/HCPCS: G0463 ==

== ENCOUNTER 2021-10-18 15:47 | Emergency (ER) | payer OTHER ==
[~2021-10-18] VITALS: Ht 172.7 cm; Wt 75.8 kg
[2021-10-18 16:38] LABS: BASOPHILS ABSOLUTE AUTO 0.04 K/mm3 (0.00-0.23); BASOPHILS PERCENT AUTO 1 % (0-2); EOSINOPHILS ABSOLUTE AUTO 0.18 K/mm3 (0.00-0.68); EOSINOPHILS PERCENT AUTO 2 % (0-6); Hematocrit 46.2 % (37.0-53.0); Hemoglobin 15.6 g/dL (13.5-17.5); IMMATURE GRAN ABSOLUTE AUTO 0.01 K/mm3 (0.00-0.10); IMMATURE GRAN PERCENT AUTO 0 % (0-1); LYMPHOCYTES ABSOLUTE AUTO 1.62 K/mm3 (0.84-5.20); LYMPHOCYTES PERCENT AUTO 20 % (21-46); MONOCYTES ABSOLUTE AUTO 0.65 K/mm3 (0.16-1.47); MONOCYTES PERCENT AUTO 8 % (4-13); Mean Corpuscular HGB 28.9 pg (26.0-34.0); Mean Corpuscular HGB Conc 33.8 g/dL (31.5-36.5); Mean Corpuscular Volume 86 fL (80-100); Mean Platelet Volume 9.3 fL (9.1-12.4); NEUTROPHILS ABSOLUTE AUTO 5.56 K/mm3 (1.96-9.15); NEUTROPHILS PERCENT AUTO 69 % (41-73); Platelet Count 274 K/mm3 (150-400); RDW Coefficient Variation 12.8 % (11.7-14.2); RDW Standard Deviation 39.6 fL (35.1-46.3); Red Blood Cell Count 5.39 M/mm3 (4.30-5.90); White Blood Cell Count 8.06 K/mm3 (4.00-11.30)
[2021-10-18 17:10] LABS: Alanine Aminotransfer (ALT/SGP 25 U/L (12-78); Albumin, Blood 3.6 g/dL (3.4-5.0); Albumin/Globulin Ratio 0.9 (0.8-1.8); Alk Phos 110 U/L (50-136); Anion Gap 5 mmol/L (6-16); Aspartate Aminotrans (AST/SGOT 22 U/L (12-37); Bilirubin, Total 0.6 mg/dL (0.1-1.0); Blood Urea Nitrogen 20 mg/dL (8-24); Bun/Creatinine Ratio 21.4 (12.0-20.0); CO2, Blood 30 mmol/L (21-32); Calcium, Blood 9.3 mg/dL (8.5-10.1); Chloride, Blood 100 mmol/L (98-108); Creatinine, Blood 0.93 mg/dL (0.60-1.20); Globulin, Blood 4.2 g/dL (2.2-4.0); Glomerular Filtration Rate >60 (60-); Glucose, Blood 300 mg/dL (70-99); Potassium, Blood 4.8 mmol/L (3.5-5.5); Sodium, Blood 135 mmol/L (136-145); Total Protein, Blood 7.8 g/dL (6.4-8.2)
== END 2021-10-18 18:45 | disposition home or self-care (01) ==
LOC: ER 15:47
PROVIDERS: Physician Assistant
DX: I95.9 Hypotension, unspecified (principal); E86.0 Dehydration; E11.9 Type 2 diabetes mellitus without complications; Z88.8 Allergy status to other drugs, medicaments and biological substances; Z79.899 Other long term (current) drug therapy; Z79.4 Long term (current) use of insulin; Z79.82 Long term (current) use of aspirin
CPT/HCPCS: 36415; 80053; 85025; 93005; 93010; 99285-25; J7030

== ENCOUNTER 2021-11-03 05:14 | Day surgery (SDC) | payer BC, OTHER | END 2021-11-03 12:00 | disposition home or self-care (01) | LOC: WOUND 05:14 | DX: E11.621 Type 2 diabetes mellitus with foot ulcer (principal); L97.422 Non-pressure chronic ulcer of left heel and midfoot with fat layer exposed; T22.211A Burn of second degree of right forearm, initial encounter; X08.8XXA Exposure to other specified smoke, fire and flames, initial encounter; S51.811A Laceration without foreign body of right forearm, initial encounter; X58.XXXA Exposure to other specified factors, initial encounter; E11.51 Type 2 diabetes mellitus with diabetic peripheral angiopathy without gangrene; E11.40 Type 2 diabetes mellitus with diabetic neuropathy, unspecified; I25.10 Atherosclerotic heart disease of native coronary artery without angina pectoris; I87.2 Venous insufficiency (chronic) (peripheral); L89.892 Pressure ulcer of other site, stage 2; L89.893 Pressure ulcer of other site, stage 3; Z79.4 Long term (current) use of insulin | CPT/HCPCS: A9270; G0463 ==

== ENCOUNTER 2021-11-20 03:07 | Day surgery (SDC) | payer OTHER | END 2021-11-20 23:28 | disposition home or self-care (01) | LOC: WOUND 03:07 | DX: E11.621 Type 2 diabetes mellitus with foot ulcer (principal); L97.422 Non-pressure chronic ulcer of left heel and midfoot with fat layer exposed; T22.211A Burn of second degree of right forearm, initial encounter; S51.811A Laceration without foreign body of right forearm, initial encounter; I25.10 Atherosclerotic heart disease of native coronary artery without angina pectoris; I87.2 Venous insufficiency (chronic) (peripheral); E11.51 Type 2 diabetes mellitus with diabetic peripheral angiopathy without gangrene; L89.892 Pressure ulcer of other site, stage 2; L89.893 Pressure ulcer of other site, stage 3; Z79.4 Long term (current) use of insulin; X08.8XXA Exposure to other specified smoke, fire and flames, initial encounter | CPT/HCPCS: A9270; G0463 ==

== ENCOUNTER 2021-12-04 01:31 | Day surgery (SDC) | payer OTHER | END 2021-12-04 23:41 | disposition home or self-care (01) | LOC: WOUND 01:31 | DX: E11.621 Type 2 diabetes mellitus with foot ulcer (principal); L97.422 Non-pressure chronic ulcer of left heel and midfoot with fat layer exposed; T22.211A Burn of second degree of right forearm, initial encounter; S51.811A Laceration without foreign body of right forearm, initial encounter; E11.51 Type 2 diabetes mellitus with diabetic peripheral angiopathy without gangrene; I87.2 Venous insufficiency (chronic) (peripheral); L89.892 Pressure ulcer of other site, stage 2; L89.893 Pressure ulcer of other site, stage 3; X08.8XXA Exposure to other specified smoke, fire and flames, initial encounter; X58.XXXA Exposure to other specified factors, initial encounter; Z79.4 Long term (current) use of insulin | CPT/HCPCS: G0463 ==

== ENCOUNTER 2021-12-21 19:07 | Emergency (ER) | payer OTHER ==
[~2021-12-21] VITALS: Ht 172.7 cm; Wt 70.8 kg
[2021-12-21 19:52] LABS: BASOPHILS ABSOLUTE AUTO 0.05 K/mm3 (0.00-0.23); BASOPHILS PERCENT AUTO 1 % (0-2); EOSINOPHILS ABSOLUTE AUTO 0.15 K/mm3 (0.00-0.68); EOSINOPHILS PERCENT AUTO 2 % (0-6); Hemoglobin 14.9 g/dL (13.5-17.5); IMMATURE GRAN ABSOLUTE AUTO 0.01 K/mm3 (0.00-0.10); IMMATURE GRAN PERCENT AUTO 0 % (0-1); LYMPHOCYTES ABSOLUTE AUTO 1.41 K/mm3 (0.84-5.20); LYMPHOCYTES PERCENT AUTO 20 % (21-46); MONOCYTES ABSOLUTE AUTO 0.65 K/mm3 (0.16-1.47); MONOCYTES PERCENT AUTO 9 % (4-13); Mean Corpuscular HGB 28.8 pg (26.0-34.0); Mean Corpuscular HGB Conc 33.1 g/dL (31.5-36.5); Mean Corpuscular Volume 87 fL (80-100); Mean Platelet Volume 9.2 fL (9.1-12.4); NEUTROPHILS ABSOLUTE AUTO 4.81 K/mm3 (1.96-9.15); NEUTROPHILS PERCENT AUTO 68 % (41-73); Platelet Count 302 K/mm3 (150-400); RDW Coefficient Variation 13.2 % (11.7-14.2); RDW Standard Deviation 41.9 fL (35.1-46.3); Red Blood Cell Count 5.18 M/mm3 (4.30-5.90); White Blood Cell Count 7.08 K/mm3 (4.00-11.30)
[2021-12-21 20:08] LABS: Alanine Aminotransfer (ALT/SGP 28 U/L (12-78); Albumin, Blood 3.2 g/dL (3.4-5.0); Albumin/Globulin Ratio 0.7 (0.8-1.8); Alk Phos 116 U/L (50-136); Anion Gap 8 mmol/L (6-16); Aspartate Aminotrans (AST/SGOT 13 U/L (12-37); Bilirubin, Total 0.3 mg/dL (0.1-1.0); Blood Urea Nitrogen 22 mg/dL (8-24); Bun/Creatinine Ratio 21.6 (12.0-20.0); CO2, Blood 29 mmol/L (21-32); Calcium, Blood 8.7 mg/dL (8.5-10.1); Chloride, Blood 95 mmol/L (98-108); Creatinine, Blood 1.02 mg/dL (0.60-1.20); Globulin, Blood 4.3 g/dL (2.2-4.0); Glomerular Filtration Rate >60 (60-); Glucose, Blood 425 mg/dL (70-99); Potassium, Blood 4.6 mmol/L (3.5-5.5); Sodium, Blood 132 mmol/L (136-145); Total Protein, Blood 7.5 g/dL (6.4-8.2)
== END 2021-12-21 22:34 | disposition home or self-care (01) ==
LOC: ER 19:07
PROVIDERS: Physician Assistant
DX: I95.9 Hypotension, unspecified (principal); E11.9 Type 2 diabetes mellitus without complications; I25.2 Old myocardial infarction; E78.00 Pure hypercholesterolemia, unspecified; I50.30 Unspecified diastolic (congestive) heart failure; Z79.4 Long term (current) use of insulin; Z79.899 Other long term (current) drug therapy
CPT/HCPCS: 36415; 71045; 80053; 84484; 85025; 93005; 93010; 99284-25; J7030

== ENCOUNTER → 2021-12-28 | Outpatient (CLI) | payer OTHER | END | disposition home or self-care (01) | LOC: LAB SHORT 10:59 → LAB 10:59 | DX: N39.0 Urinary tract infection, site not specified (principal) | CPT/HCPCS: 87077; 87086; 87186 ==

== ENCOUNTER 2023-02-28 03:34 | Day surgery (SDC) | payer OTHER ==
[~2023-02-28 03:34] MED LIST changes: +BENZ100A PO; +PRED20 PO
== END 2023-02-28 22:44 | disposition home or self-care (01) ==
LOC: WOUND 03:34
DX: E11.621 Type 2 diabetes mellitus with foot ulcer (principal); L97.412 Non-pressure chronic ulcer of right heel and midfoot with fat layer exposed; L97.422 Non-pressure chronic ulcer of left heel and midfoot with fat layer exposed; L89.893 Pressure ulcer of other site, stage 3; E11.42 Type 2 diabetes mellitus with diabetic polyneuropathy
CPT/HCPCS: A9270; G0463

== ENCOUNTER 2023-03-06 00:44 | Day surgery (SDC) | payer OTHER | END 2023-03-06 23:02 | disposition home or self-care (01) | LOC: WOUND 00:44 | DX: E11.621 Type 2 diabetes mellitus with foot ulcer (principal); L97.512 Non-pressure chronic ulcer of other part of right foot with fat layer exposed; I25.10 Atherosclerotic heart disease of native coronary artery without angina pectoris; L89.893 Pressure ulcer of other site, stage 3; E11.42 Type 2 diabetes mellitus with diabetic polyneuropathy | CPT/HCPCS: A9270; G0463 ==

== ENCOUNTER 2023-03-13 03:39 | Day surgery (SDC) | payer OTHER | END 2023-03-13 23:07 | disposition home or self-care (01) | LOC: WOUND 03:39 | DX: E11.621 Type 2 diabetes mellitus with foot ulcer (principal); L97.512 Non-pressure chronic ulcer of other part of right foot with fat layer exposed; L97.522 Non-pressure chronic ulcer of other part of left foot with fat layer exposed; L89.893 Pressure ulcer of other site, stage 3; E11.42 Type 2 diabetes mellitus with diabetic polyneuropathy; I25.10 Atherosclerotic heart disease of native coronary artery without angina pectoris | CPT/HCPCS: G0463 ==

== ENCOUNTER 2023-03-29 01:06 | Day surgery (SDC) | payer OTHER | END 2023-03-29 23:08 | disposition home or self-care (01) | LOC: WOUND 01:06 | DX: E11.621 Type 2 diabetes mellitus with foot ulcer (principal); L89.893 Pressure ulcer of other site, stage 3; E11.42 Type 2 diabetes mellitus with diabetic polyneuropathy | CPT/HCPCS: G0463 ==

== ENCOUNTER 2023-04-17 04:29 | Day surgery (SDC) | payer OTHER | END 2023-04-17 22:46 | disposition home or self-care (01) | LOC: WOUND 04:29 | DX: E11.621 Type 2 diabetes mellitus with foot ulcer (principal); L97.412 Non-pressure chronic ulcer of right heel and midfoot with fat layer exposed; L97.422 Non-pressure chronic ulcer of left heel and midfoot with fat layer exposed; L89.893 Pressure ulcer of other site, stage 3; E11.42 Type 2 diabetes mellitus with diabetic polyneuropathy | CPT/HCPCS: G0463 ==

== ENCOUNTER 2023-04-22 00:46 | Day surgery (SDC) | payer OTHER | END 2023-04-22 23:04 | disposition home or self-care (01) | LOC: WOUND 00:46 | DX: E11.621 Type 2 diabetes mellitus with foot ulcer (principal); L97.412 Non-pressure chronic ulcer of right heel and midfoot with fat layer exposed; L97.422 Non-pressure chronic ulcer of left heel and midfoot with fat layer exposed; L89.893 Pressure ulcer of other site, stage 3; E11.42 Type 2 diabetes mellitus with diabetic polyneuropathy; I25.10 Atherosclerotic heart disease of native coronary artery without angina pectoris | CPT/HCPCS: G0463 ==

== ENCOUNTER 2023-07-17 01:33 | Day surgery (SDC) | payer SELFPAY | END 2023-07-17 23:53 | disposition home or self-care (01) | LOC: WOUND 01:33 | DX: E11.621 Type 2 diabetes mellitus with foot ulcer (principal); L97.512 Non-pressure chronic ulcer of other part of right foot with fat layer exposed; L97.422 Non-pressure chronic ulcer of left heel and midfoot with fat layer exposed; L89.893 Pressure ulcer of other site, stage 3; E11.42 Type 2 diabetes mellitus with diabetic polyneuropathy | CPT/HCPCS: G0463 ==

== ENCOUNTER 2023-07-24 02:38 | Day surgery (SDC) | payer SELFPAY | END 2023-07-24 23:29 | disposition home or self-care (01) | LOC: WOUND 02:38 | DX: E11.621 Type 2 diabetes mellitus with foot ulcer (principal); L97.422 Non-pressure chronic ulcer of left heel and midfoot with fat layer exposed; L97.412 Non-pressure chronic ulcer of right heel and midfoot with fat layer exposed; L89.893 Pressure ulcer of other site, stage 3; E11.42 Type 2 diabetes mellitus with diabetic polyneuropathy | CPT/HCPCS: G0463 ==

== ENCOUNTER 2023-08-02 05:05 | Day surgery (SDC) | payer OTHER | END 2023-08-02 22:43 | disposition home or self-care (01) | LOC: WOUND 05:05 | DX: E11.621 Type 2 diabetes mellitus with foot ulcer (principal); L97.412 Non-pressure chronic ulcer of right heel and midfoot with fat layer exposed; L97.422 Non-pressure chronic ulcer of left heel and midfoot with fat layer exposed; L89.893 Pressure ulcer of other site, stage 3; E11.42 Type 2 diabetes mellitus with diabetic polyneuropathy | CPT/HCPCS: G0463 ==

== ENCOUNTER 2023-08-08 03:14 | Day surgery (SDC) | payer OTHER | END 2023-08-08 22:37 | disposition home or self-care (01) | LOC: WOUND 03:14 | DX: E11.621 Type 2 diabetes mellitus with foot ulcer (principal); L97.412 Non-pressure chronic ulcer of right heel and midfoot with fat layer exposed; L97.422 Non-pressure chronic ulcer of left heel and midfoot with fat layer exposed; L89.893 Pressure ulcer of other site, stage 3; E11.42 Type 2 diabetes mellitus with diabetic polyneuropathy; I25.10 Atherosclerotic heart disease of native coronary artery without angina pectoris | CPT/HCPCS: G0463 ==

== ENCOUNTER 2023-08-22 04:57 | Day surgery (SDC) | payer OTHER | END 2023-08-22 22:51 | disposition home or self-care (01) | LOC: WOUND 04:57 | DX: E11.621 Type 2 diabetes mellitus with foot ulcer (principal); L97.512 Non-pressure chronic ulcer of other part of right foot with fat layer exposed; L97.522 Non-pressure chronic ulcer of other part of left foot with fat layer exposed; L89.893 Pressure ulcer of other site, stage 3; E11.42 Type 2 diabetes mellitus with diabetic polyneuropathy; I25.10 Atherosclerotic heart disease of native coronary artery without angina pectoris | CPT/HCPCS: A9270; G0463 ==

== ENCOUNTER 2023-08-29 02:20 | Day surgery (SDC) | payer OTHER | END 2023-08-29 22:53 | disposition home or self-care (01) | LOC: WOUND 02:20 | DX: L89.893 Pressure ulcer of other site, stage 3 (principal); E11.621 Type 2 diabetes mellitus with foot ulcer; E11.42 Type 2 diabetes mellitus with diabetic polyneuropathy; I25.10 Atherosclerotic heart disease of native coronary artery without angina pectoris | CPT/HCPCS: A9270 ==

== ENCOUNTER 2023-09-11 01:55 | Day surgery (SDC) | payer OTHER | END 2023-09-11 22:40 | disposition home or self-care (01) | LOC: WOUND 01:55 | DX: E11.621 Type 2 diabetes mellitus with foot ulcer (principal); L97.412 Non-pressure chronic ulcer of right heel and midfoot with fat layer exposed; L97.422 Non-pressure chronic ulcer of left heel and midfoot with fat layer exposed; I25.10 Atherosclerotic heart disease of native coronary artery without angina pectoris; L89.893 Pressure ulcer of other site, stage 3; E11.42 Type 2 diabetes mellitus with diabetic polyneuropathy | CPT/HCPCS: Q4133 ==

== ENCOUNTER 2023-09-13 03:55 | Day surgery (SDC) | payer OTHER | END 2023-09-13 22:51 | disposition home or self-care (01) | LOC: WOUND 03:55 | DX: E11.621 Type 2 diabetes mellitus with foot ulcer (principal); L97.412 Non-pressure chronic ulcer of right heel and midfoot with fat layer exposed; I25.10 Atherosclerotic heart disease of native coronary artery without angina pectoris; L89.893 Pressure ulcer of other site, stage 3; E11.42 Type 2 diabetes mellitus with diabetic polyneuropathy ==

== ENCOUNTER 2023-09-19 01:28 | Day surgery (SDC) | payer OTHER | END 2023-09-19 23:01 | disposition home or self-care (01) | LOC: WOUND 01:28 | DX: E11.621 Type 2 diabetes mellitus with foot ulcer (principal); L97.412 Non-pressure chronic ulcer of right heel and midfoot with fat layer exposed; L97.422 Non-pressure chronic ulcer of left heel and midfoot with fat layer exposed; L89.893 Pressure ulcer of other site, stage 3; E11.42 Type 2 diabetes mellitus with diabetic polyneuropathy; I25.10 Atherosclerotic heart disease of native coronary artery without angina pectoris | CPT/HCPCS: A9270 ==

== ENCOUNTER 2023-09-30 02:01 | Day surgery (SDC) | payer OTHER | END 2023-09-30 22:56 | disposition home or self-care (01) | LOC: WOUND 02:01 | DX: E11.621 Type 2 diabetes mellitus with foot ulcer (principal); L97.412 Non-pressure chronic ulcer of right heel and midfoot with fat layer exposed; L97.422 Non-pressure chronic ulcer of left heel and midfoot with fat layer exposed; I25.10 Atherosclerotic heart disease of native coronary artery without angina pectoris; L89.893 Pressure ulcer of other site, stage 3; E11.42 Type 2 diabetes mellitus with diabetic polyneuropathy ==

== ENCOUNTER 2023-10-09 05:18 | Day surgery (SDC) | payer OTHER | END 2023-10-09 22:55 | disposition home or self-care (01) | LOC: WOUND 05:18 | DX: E11.621 Type 2 diabetes mellitus with foot ulcer (principal); L89.893 Pressure ulcer of other site, stage 3; E11.42 Type 2 diabetes mellitus with diabetic polyneuropathy | CPT/HCPCS: G0463 ==

== ENCOUNTER → 2023-10-17 | Outpatient (CLI) | payer OTHER ==
[2023-10-17 15:53] LABS: BASOPHILS ABSOLUTE AUTO 0.05 K/mm3 (0.00-0.23); BASOPHILS PERCENT AUTO 1 % (0-2); EOSINOPHILS ABSOLUTE AUTO 0.12 K/mm3 (0.00-0.68); EOSINOPHILS PERCENT AUTO 2 % (0-6); Hematocrit 48.5 % (37.0-53.0); Hemoglobin 15.9 g/dL (13.5-17.5); IMMATURE GRAN ABSOLUTE AUTO 0.02 K/mm3 (0.00-0.10); IMMATURE GRAN PERCENT AUTO 0 % (0-1); LYMPHOCYTES ABSOLUTE AUTO 1.84 K/mm3 (0.84-5.20); LYMPHOCYTES PERCENT AUTO 23 % (21-46); MONOCYTES ABSOLUTE AUTO 0.67 K/mm3 (0.16-1.47); MONOCYTES PERCENT AUTO 8 % (4-13); Mean Corpuscular HGB 28.7 pg (26.0-34.0); Mean Corpuscular HGB Conc 32.8 g/dL (31.5-36.5); Mean Corpuscular Volume 88 fL (80-100); Mean Platelet Volume 9.8 fL (9.1-12.4); NEUTROPHILS ABSOLUTE AUTO 5.25 K/mm3 (1.96-9.15); NEUTROPHILS PERCENT AUTO 66 % (41-73); Platelet Count 265 K/mm3 (150-400); RDW Coefficient Variation 13.1 % (11.7-14.2); Red Blood Cell Count 5.54 M/mm3 (4.30-5.90); White Blood Cell Count 7.95 K/mm3 (4.00-11.30)
[2023-10-19 09:18] LABS: HIV 1,2 COMBO ANTIGEN/ANTIBODY Negative (Negative)
[2023-10-19 10:36] LABS: HEPATITIS C AB CIA INTERP Negative (Negative); HEPATITIS C ANTIBODY CIA INDEX 0.15 IV
== END | disposition home or self-care (01) ==
LOC: LAB SHORT 14:38 → LAB 14:38
PROVIDERS: Nurse Practitioner Family
DX: Z11.59 Encounter for screening for other viral diseases (principal); E78.5 Hyperlipidemia, unspecified
CPT/HCPCS: 85025; 86803; 87389

== ENCOUNTER 2023-10-18 02:56 | Day surgery (SDC) | payer OTHER | END 2023-10-18 23:04 | disposition home or self-care (01) | LOC: WOUND 02:56 | DX: E11.621 Type 2 diabetes mellitus with foot ulcer (principal); L97.422 Non-pressure chronic ulcer of left heel and midfoot with fat layer exposed; E11.42 Type 2 diabetes mellitus with diabetic polyneuropathy; L89.893 Pressure ulcer of other site, stage 3 | CPT/HCPCS: G0463 ==

== ENCOUNTER 2023-10-28 03:28 | Day surgery (SDC) | payer OTHER | END 2023-10-28 23:17 | disposition home or self-care (01) | LOC: WOUND 03:28 | DX: E11.621 Type 2 diabetes mellitus with foot ulcer (principal); L89.893 Pressure ulcer of other site, stage 3; E11.42 Type 2 diabetes mellitus with diabetic polyneuropathy; I25.10 Atherosclerotic heart disease of native coronary artery without angina pectoris | CPT/HCPCS: G0463 ==

== ENCOUNTER 2023-11-08 10:36 | Inpatient (IN) | payer OTHER ==
[~2023-11-08] VITALS: Ht 172.7 cm; Wt 82.6 kg
[2023-11-08 11:37] LABS: Influenza A, PCR NEGATIVE (NEGATIVE); Influenza B, PCR NEGATIVE (NEGATIVE); Resp Syncytial Virus, PCR NEGATIVE (NEGATIVE); SARS-Cov-2 (COVID-19) PCR, MMC NEGATIVE (NEGATIVE)
[2023-11-08 11:46] LABS: BASOPHILS ABSOLUTE AUTO 0.05 K/mm3 (0.00-0.23); BASOPHILS PERCENT AUTO 0 % (0-2); EOSINOPHILS ABSOLUTE AUTO 0.05 K/mm3 (0.00-0.68); EOSINOPHILS PERCENT AUTO 0 % (0-6); Hemoglobin 15.2 g/dL (13.5-17.5); IMMATURE GRAN ABSOLUTE AUTO 0.13 K/mm3 (0.00-0.10); IMMATURE GRAN PERCENT AUTO 1 % (0-1); LYMPHOCYTES ABSOLUTE AUTO 1.17 K/mm3 (0.84-5.20); LYMPHOCYTES PERCENT AUTO 6 % (21-46); MONOCYTES ABSOLUTE AUTO 1.13 K/mm3 (0.16-1.47); MONOCYTES PERCENT AUTO 6 % (4-13); Mean Corpuscular HGB 28.7 pg (26.0-34.0); Mean Corpuscular HGB Conc 33.8 g/dL (31.5-36.5); Mean Corpuscular Volume 85 fL (80-100); Mean Platelet Volume 9.9 fL (9.1-12.4); NEUTROPHILS ABSOLUTE AUTO 17.51 K/mm3 (1.96-9.15); NEUTROPHILS PERCENT AUTO 88 % (41-73); Platelet Count 366 K/mm3 (150-400); RDW Coefficient Variation 12.9 % (11.7-14.2); RDW Standard Deviation 40.5 fL (35.1-46.3); Red Blood Cell Count 5.29 M/mm3 (4.30-5.90); White Blood Cell Count 20.04 K/mm3 (4.00-11.30)
[2023-11-08 12:06] LABS: Alanine Aminotransfer (ALT/SGP 34 U/L (12-78); Albumin, Blood 2.8 g/dL (3.4-5.0); Albumin/Globulin Ratio 0.5 (0.8-1.8); Alk Phos 107 U/L (50-136); Anion Gap 9 mmol/L (6-16); Aspartate Aminotrans (AST/SGOT 16 U/L (12-37); Bilirubin, Total 0.8 mg/dL (0.1-1.0); Blood Urea Nitrogen 43 mg/dL (8-24); Bun/Creatinine Ratio 35.8 (12.0-20.0); CO2, Blood 28 mmol/L (21-32); Calcium, Blood 9.1 mg/dL (8.5-10.1); Chloride, Blood 95 mmol/L (98-108); Globulin, Blood 5.4 g/dL (2.2-4.0); Glomerular Filtration Rate 71 (60-); Glucose, Blood 281 mg/dL (70-99); Potassium, Blood 4.5 mmol/L (3.5-5.5); Sodium, Blood 132 mmol/L (136-145); Total Protein, Blood 8.2 g/dL (6.4-8.2)
[2023-11-08] MEDS ORDERED: SEMGLEE (Y100 UNIT/2 SC (12:31)
[2023-11-08] MEDS ORDERED: NOVOLOG FL100 UNIT/3 SC (12:32)
[2023-11-08 13:45] LABS: C-REACTIVE PROTEIN, EXT RANGE >19.000 mg/dL (0.000-0.300)
[2023-11-08 16:54] VITALS: BP 148/102
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
[2023-11-08 20:44] VITALS: BP 125/69
--- NOTE | 2023-11-09 03:36 | NUR ---
END OF SHIFT SUMMARY PT A&O x4, VSS, AFEBRILE, PT ON 4L VIA NC. PT APPEARED TO BE ASLEEP THE MAJORITY OF THE SHIFT. PT CALLED TO LET CARE STAFF AFTER HE SELF CATHETERIZES. NO C/O PAIN. PT DENIED CHEST PAIN, NO SOB. PT INDEPENDENTLY TRANSFERS IN HIS ROOM WITH FWW. PT ON TELEMETRY, NORMAL SINUS RHYTHM HR IN THE 70'S, NO CALLS FROM SENIOR AIR DIRECTOR. CALL LIGHT WITHIN REACH, WCTM.
[2023-11-09 07:25] VITALS: BP 136/86
[2023-11-09 15:54] VITALS: BP 149/89
--- NOTE | 2023-11-09 16:01 | NUR ---
DAYSHIFT SUMMARY Patient alert & oriented x4. No acute changes this shift, patient continues to report tenderness in right ankle. On admit outline redness on right ankle/foot, no changes in redness noted this shift. IV Cefazolin administred. Vital signs stable, afebrile. Telemetry in place, no cardiac events this shift. Possible discharge tomorrow.
[2023-11-09 21:00] VITALS: BP 127/78
[2023-11-10 04:54] LABS: Hematocrit 38.7 % (37.0-53.0); Mean Corpuscular HGB 28.3 pg (26.0-34.0); Mean Corpuscular HGB Conc 33.6 g/dL (31.5-36.5); Mean Corpuscular Volume 84 fL (80-100); Mean Platelet Volume 9.7 fL (9.1-12.4); Platelet Count 377 K/mm3 (150-400); RDW Coefficient Variation 13.2 % (11.7-14.2); RDW Standard Deviation 41.1 fL (35.1-46.3); Red Blood Cell Count 4.59 M/mm3 (4.30-5.90)
[2023-11-10 05:08] VITALS: BP 130/94
[2023-11-10 05:53] LABS: Albumin, Blood 2.3 g/dL (3.4-5.0); Anion Gap 5 mmol/L (6-16); Blood Urea Nitrogen 26 mg/dL (8-24); Bun/Creatinine Ratio 33.7 (12.0-20.0); CO2, Blood 30 mmol/L (21-32); Calcium, Blood 8.4 mg/dL (8.5-10.1); Chloride, Blood 101 mmol/L (98-108); Creatinine, Blood 0.77 mg/dL (0.60-1.20); Glomerular Filtration Rate 106 (60-); Glucose, Blood 192 mg/dL (70-99); Magnesium, Blood 2.4 mg/dL (1.6-2.4); Phosphorus, Blood 3.1 mg/dL (2.5-4.9); Potassium, Blood 3.9 mmol/L (3.5-5.5); Sodium, Blood 136 mmol/L (136-145)
[2023-11-10 07:39] VITALS: BP 115/88
[2023-11-10] MEDS ORDERED: CEPH500 PO (12:16)
--- NOTE | 2023-11-10 14:23 | NUR ---
PT DISCHARGED 1240 WITH INSTRUCTIONS. RX FAXED TO [facility]. PT SENT HOME WITH BELONGINGS. CELLULITIS TO LLE PINK AND WARM BUT IMPROVED FROM INITIAL ADMIT. WILL CONT ORAL ABX AT HOME. TOLERATING FOOD AND FLUIDS, AFIBRILE. INDEPENDANT, SELF CATHS. WHEELCHAIR OUT TO PRIVATE CAR FOR DC HOME
== END 2023-11-10 13:11 | disposition home or self-care (01) | DRG 872 ==
LOC: ER 10:36 → MEDS 15:39
PROVIDERS: Physician Assistant; ADMIT Internal Medicine
DX: A41.9 Sepsis, unspecified organism (principal); L03.115 Cellulitis of right lower limb; J96.11 Chronic respiratory failure with hypoxia; I50.32 Chronic diastolic (congestive) heart failure; E11.40 Type 2 diabetes mellitus with diabetic neuropathy, unspecified; N31.2 Flaccid neuropathic bladder, not elsewhere classified; I11.0 Hypertensive heart disease with heart failure; E11.65 Type 2 diabetes mellitus with hyperglycemia; N40.1 Benign prostatic hyperplasia with lower urinary tract symptoms; R33.8 Other retention of urine; R05.3 Chronic cough; Z88.8 Allergy status to other drugs, medicaments and biological substances; Z79.4 Long term (current) use of insulin; Z79.82 Long term (current) use of aspirin; I25.2 Old myocardial infarction; Z79.84 Long term (current) use of oral hypoglycemic drugs; Z11.52 Encounter for screening for COVID-19
CPT/HCPCS: 0241U; 36415; 71046; 73610; 73701; 80053; 80069; 82947; 83605; 83735; 83880; 84484; 85025; 85027; 86140; 93005; 93010; 93971; 94640; 94664; 94760; 96365-59; 99285-25; A9270; J0690; J1650; J1815; J7030; J7120; Q9967

== ENCOUNTER 2023-11-13 02:54 | Day surgery (SDC) | payer OTHER ==
[~2023-11-13 02:54] MED LIST changes: +NOVOLOG FL100 UNIT/3 SC; +SEMGLEE (Y100 UNIT/2 SC
[2023-11-14] MEDS ORDERED: CEFTRIAXONE2 G1 IV (10:59)
[2023-11-14] MEDS ORDERED: VISBIOME 112.51 EACH PO (10:59)
== END 2023-11-13 23:22 | disposition home or self-care (01) ==
LOC: WOUND 02:54
DX: E11.621 Type 2 diabetes mellitus with foot ulcer (principal); L97.422 Non-pressure chronic ulcer of left heel and midfoot with fat layer exposed; I25.10 Atherosclerotic heart disease of native coronary artery without angina pectoris; L89.893 Pressure ulcer of other site, stage 3; E11.42 Type 2 diabetes mellitus with diabetic polyneuropathy; L03.115 Cellulitis of right lower limb; B35.1 Tinea unguium; E11.40 Type 2 diabetes mellitus with diabetic neuropathy, unspecified; N40.0 Benign prostatic hyperplasia without lower urinary tract symptoms; I11.0 Hypertensive heart disease with heart failure; I50.32 Chronic diastolic (congestive) heart failure; I25.2 Old myocardial infarction; Z88.8 Allergy status to other drugs, medicaments and biological substances; Z79.82 Long term (current) use of aspirin; Z79.4 Long term (current) use of insulin; Z79.899 Other long term (current) drug therapy
CPT/HCPCS: 36415; 80053; 82947; 85025; 94762; 96365; 96376; 99284; A9270; C1751; G0378; G0463; J0690; J1650; J1815; J7050

== ENCOUNTER 2023-11-13 10:46 | Observation (INO) | payer OTHER ==
[~2023-11-13] VITALS: Ht 172.7 cm; Wt 80.0 kg
[2023-11-13 11:47] LABS: BASOPHILS ABSOLUTE AUTO 0.06 K/mm3 (0.00-0.23); BASOPHILS PERCENT AUTO 0 % (0-2); EOSINOPHILS ABSOLUTE AUTO 0.18 K/mm3 (0.00-0.68); EOSINOPHILS PERCENT AUTO 1 % (0-6); Hematocrit 38.7 % (37.0-53.0); Hemoglobin 12.3 g/dL (13.5-17.5); IMMATURE GRAN ABSOLUTE AUTO 0.09 K/mm3 (0.00-0.10); IMMATURE GRAN PERCENT AUTO 1 % (0-1); LYMPHOCYTES ABSOLUTE AUTO 1.31 K/mm3 (0.84-5.20); LYMPHOCYTES PERCENT AUTO 10 % (21-46); MONOCYTES ABSOLUTE AUTO 1.25 K/mm3 (0.16-1.47); MONOCYTES PERCENT AUTO 9 % (4-13); Mean Corpuscular HGB 28.4 pg (26.0-34.0); Mean Corpuscular HGB Conc 31.8 g/dL (31.5-36.5); Mean Corpuscular Volume 89 fL (80-100); Mean Platelet Volume 9.4 fL (9.1-12.4); NEUTROPHILS ABSOLUTE AUTO 10.92 K/mm3 (1.96-9.15); NEUTROPHILS PERCENT AUTO 79 % (41-73); Platelet Count 540 K/mm3 (150-400); RDW Coefficient Variation 13.5 % (11.7-14.2); RDW Standard Deviation 44.7 fL (35.1-46.3); Red Blood Cell Count 4.33 M/mm3 (4.30-5.90); White Blood Cell Count 13.81 K/mm3 (4.00-11.30)
[2023-11-13 12:08] LABS: Albumin, Blood 2.3 g/dL (3.4-5.0); Albumin/Globulin Ratio 0.4 (0.8-1.8); Bilirubin, Total 0.6 mg/dL (0.1-1.0); Bun/Creatinine Ratio 24.2 (12.0-20.0); Calcium, Blood 8.5 mg/dL (8.5-10.1); Creatinine, Blood 0.87 mg/dL (0.60-1.20); Globulin, Blood 5.2 g/dL (2.2-4.0); Potassium, Blood 4.6 mmol/L (3.5-5.5); Total Protein, Blood 7.5 g/dL (6.4-8.2)
[2023-11-13] MEDS ORDERED: FLU VACC QS2023-24(6MOS UP)/PF 60 MCG/0.5 ML SYRINGE IM SCH (15:15)
[2023-11-13] MEDS ORDERED: CeFAZolin Sodium 2,000 MG in NS 50 ML IV SCH (16:30)
[2023-11-13 16:33] VITALS: BP 139/90
[2023-11-13] MEDS ORDERED: Insulin Human Lispro 100 Units/ML 3ML Syringe SC SCH ×2 (16:55→17:30)
--- NOTE | 2023-11-13 18:12 | NUR ---
ER ADMIT Patient admitted for RLE cellulitis, patient was admitted this weekend and discharged on saturday. But returned for worsening cellulitis. Patient alert & oriented x4, reports discomfort, denies pain, states "he has a high threshold for pain". 2 RN skin check done on admission, took pictures of Right foot cellulitis, and wound on left knee. Patient had dressing changed today in the wound clinic for the chronic ulcer on the planat aspect of his left foot. Dressing CDI. Patient has healing scabs, scratches t/o body, he states that he picks at his skin. Med rec reviewed with patient and home meds ordered. IV Ancef administred this evening. CBG 158 at dinner time, Humalog high SSI 3units administred. Patient independent in the room, calls appropriately for help. Will continue plan of care.
[2023-11-13 19:16] VITALS: BP 158/98
[2023-11-13] MEDS ORDERED: NS 250 ML IV PRN (19:50)
[2023-11-13] MEDS ORDERED: Aspirin 81 MG Chew PO SCH (21:00)
[2023-11-13] MEDS ORDERED: Loperamide HCl 2 MG Cap PO SCH (21:00)
[2023-11-14] MEDS ORDERED: NS 50 ML IV ONE (00:10)
[2023-11-14] MEDS ORDERED: CeFAZolin Sodium 2,000 MG VIAL ONE (00:15)
--- NOTE | 2023-11-14 04:11 | NUR ---
SHIFT SUMMERY, PT RESTING IN BED, PT IS NOW HAVING SLEEP STUDY DONE, PT APPEARS TO BE COMFORTABLE AND SEEMS TOB BE SLEEPING WELL. PT DOSE SELF CATHING AT [facility] SO PROVIDED SUPPLIES TO PT TO BE ABLE TO SELF CATH HERE. CALL LIGHT IN REACH.
[2023-11-14 04:49] VITALS: BP 159/91
[2023-11-14 06:13] LABS: BASOPHILS ABSOLUTE AUTO 0.05 K/mm3 (0.00-0.23); BASOPHILS PERCENT AUTO 1 % (0-2); EOSINOPHILS ABSOLUTE AUTO 0.31 K/mm3 (0.00-0.68); EOSINOPHILS PERCENT AUTO 3 % (0-6); Hematocrit 37.1 % (37.0-53.0); Hemoglobin 12.2 g/dL (13.5-17.5); IMMATURE GRAN ABSOLUTE AUTO 0.07 K/mm3 (0.00-0.10); IMMATURE GRAN PERCENT AUTO 1 % (0-1); LYMPHOCYTES ABSOLUTE AUTO 1.42 K/mm3 (0.84-5.20); LYMPHOCYTES PERCENT AUTO 14 % (21-46); MONOCYTES ABSOLUTE AUTO 0.96 K/mm3 (0.16-1.47); MONOCYTES PERCENT AUTO 10 % (4-13); Mean Corpuscular HGB 28.6 pg (26.0-34.0); Mean Corpuscular HGB Conc 32.9 g/dL (31.5-36.5); Mean Corpuscular Volume 87 fL (80-100); Mean Platelet Volume 9.1 fL (9.1-12.4); NEUTROPHILS ABSOLUTE AUTO 7.05 K/mm3 (1.96-9.15); NEUTROPHILS PERCENT AUTO 72 % (41-73); Platelet Count 524 K/mm3 (150-400); RDW Coefficient Variation 13.4 % (11.7-14.2); RDW Standard Deviation 42.5 fL (35.1-46.3); Red Blood Cell Count 4.26 M/mm3 (4.30-5.90); White Blood Cell Count 9.86 K/mm3 (4.00-11.30)
[2023-11-14 07:30] VITALS: BP 137/81
[2023-11-14] MEDS ORDERED: Enoxaparin 40 MG/0.4 ML SYR SC SCH (09:00)
[2023-11-14] MEDS ORDERED: Insulin Glargine-Yfgn 100 Unit/mL 3 ML SYR SC SCH ×2 (09:00)
[2023-11-14] MEDS ORDERED: CEFTRIAXONE2 G1 IV ×2 (10:59)
[2023-11-14] MEDS ORDERED: VISBIOME 112.51 EACH PO ×2 (10:59)
--- NOTE | 2023-11-14 11:53 | NUR ---
RN CALLED ERIC AT 1150 AND MADE 1030 APPT FOR PT FOR TOMORROW'S INFUSION ON 11/14/23. PT AND BOTH AGREE TO THIS TIME.
--- NOTE | 2023-11-14 12:56 | NUR ---
DC- PT DC AT 1245 IN STABLE CONDITION. PT AWARE OF [facility] AT 1030 TOMORROW. PT LEFT WITH ALL BELONGINGS WITH . PT BROUGHT DOWN IN WC BY THIS RN.
== END 2023-11-14 12:47 | disposition home or self-care (01) ==
LOC: ER 10:46 → MEDS 10:47 → ENPENDDIS 11-14 10:23 → MEDS 11-14 12:47
PROVIDERS: Physician Assistant; ADMIT Hospitalist
DX: L03.115 Cellulitis of right lower limb (principal); B35.1 Tinea unguium; E11.40 Type 2 diabetes mellitus with diabetic neuropathy, unspecified; N40.0 Benign prostatic hyperplasia without lower urinary tract symptoms; I11.0 Hypertensive heart disease with heart failure; I50.32 Chronic diastolic (congestive) heart failure; I25.2 Old myocardial infarction; Z88.8 Allergy status to other drugs, medicaments and biological substances; Z79.82 Long term (current) use of aspirin; Z79.4 Long term (current) use of insulin; Z79.899 Other long term (current) drug therapy
CPT/HCPCS: 36415; 80053; 82947; 85025; 94762; 96365; 96372; 96376; 99284; A9270; C1751; G0378; G0463; J0690; J1650; J1815; J7050

== ENCOUNTER 2023-11-15 01:11 | Day surgery (SDC) | payer OTHER ==
[~2023-11-15 01:11] MED LIST changes: +CEFTRIAXONE2 G1 IV; +VISBIOME 112.51 EACH PO
[2023-11-15] MEDS ORDERED: CefTRIAXone Sodium 1,000 MG in NS 50 ML IV SCH (06:00)
[2023-11-15 10:34] VITALS: BP 146/95
== END 2023-11-15 10:51 | disposition home or self-care (01) ==
LOC: ATC 01:11
DX: L03.90 Cellulitis, unspecified (principal); E11.40 Type 2 diabetes mellitus with diabetic neuropathy, unspecified; I95.9 Hypotension, unspecified; I25.2 Old myocardial infarction; E78.00 Pure hypercholesterolemia, unspecified; I11.0 Hypertensive heart disease with heart failure; I50.32 Chronic diastolic (congestive) heart failure; Z88.8 Allergy status to other drugs, medicaments and biological substances; Z79.899 Other long term (current) drug therapy; Z79.4 Long term (current) use of insulin
CPT/HCPCS: 96365; J0696

== ENCOUNTER 2023-11-16 00:40 | Day surgery (SDC) | payer OTHER ==
[2023-11-16] MEDS ORDERED: CefTRIAXone Sodium 1,000 MG in NS 50 ML IV SCH (09:25)
[2023-11-16 10:17] VITALS: BP 137/67
== END 2023-11-16 10:31 | disposition home or self-care (01) ==
LOC: ATC 00:40
DX: L03.115 Cellulitis of right lower limb (principal); I11.0 Hypertensive heart disease with heart failure; I50.32 Chronic diastolic (congestive) heart failure; N40.0 Benign prostatic hyperplasia without lower urinary tract symptoms; B35.1 Tinea unguium; E11.40 Type 2 diabetes mellitus with diabetic neuropathy, unspecified; I25.2 Old myocardial infarction; Z88.8 Allergy status to other drugs, medicaments and biological substances; Z79.82 Long term (current) use of aspirin; Z79.4 Long term (current) use of insulin; Z79.899 Other long term (current) drug therapy
CPT/HCPCS: 96365; J0696

== ENCOUNTER 2023-11-17 10:05 | Day surgery (SDC) | payer OTHER ==
[2023-11-17 10:25] VITALS: BP 125/79
== END 2023-11-17 10:41 | disposition home or self-care (01) ==
LOC: ATC 10:05
DX: L03.115 Cellulitis of right lower limb (principal); I25.2 Old myocardial infarction; I50.32 Chronic diastolic (congestive) heart failure; E11.40 Type 2 diabetes mellitus with diabetic neuropathy, unspecified; I11.0 Hypertensive heart disease with heart failure; Z79.4 Long term (current) use of insulin; Z88.8 Allergy status to other drugs, medicaments and biological substances; Z79.899 Other long term (current) drug therapy; N40.0 Benign prostatic hyperplasia without lower urinary tract symptoms
CPT/HCPCS: 96365; J0696

== ENCOUNTER 2023-11-18 01:57 | Day surgery (SDC) | payer OTHER ==
[2023-11-18] MEDS ORDERED: CefTRIAXone Sodium 1,000 MG in NS 50 ML IV SCH (06:00)
[2023-11-18 10:16] VITALS: BP 107/91
== END 2023-11-18 10:39 | disposition home or self-care (01) ==
LOC: ATC 01:57
DX: L03.90 Cellulitis, unspecified (principal); E11.40 Type 2 diabetes mellitus with diabetic neuropathy, unspecified; I25.2 Old myocardial infarction; E78.00 Pure hypercholesterolemia, unspecified; I11.0 Hypertensive heart disease with heart failure; I50.32 Chronic diastolic (congestive) heart failure; Z88.8 Allergy status to other drugs, medicaments and biological substances; Z79.4 Long term (current) use of insulin
CPT/HCPCS: 96365; J0696

== ENCOUNTER 2023-11-19 01:42 | Day surgery (SDC) | payer OTHER ==
[2023-11-19] MEDS ORDERED: CefTRIAXone Sodium 1,000 MG in NS 50 ML IV SCH (07:00)
[2023-11-19 10:45] VITALS: BP 95/72
== END 2023-11-19 10:40 | disposition home or self-care (01) ==
LOC: ATC 01:42
DX: L03.90 Cellulitis, unspecified (principal); E11.9 Type 2 diabetes mellitus without complications; I25.2 Old myocardial infarction; E78.00 Pure hypercholesterolemia, unspecified; I11.0 Hypertensive heart disease with heart failure; I50.32 Chronic diastolic (congestive) heart failure; E11.40 Type 2 diabetes mellitus with diabetic neuropathy, unspecified; N40.0 Benign prostatic hyperplasia without lower urinary tract symptoms; B35.1 Tinea unguium; Z88.8 Allergy status to other drugs, medicaments and biological substances; Z79.899 Other long term (current) drug therapy
CPT/HCPCS: 96365; J0696

== ENCOUNTER 2023-11-20 01:19 | Day surgery (SDC) | payer OTHER | END 2023-11-20 23:37 | disposition home or self-care (01) | LOC: WOUND 01:19 | DX: E11.621 Type 2 diabetes mellitus with foot ulcer (principal); L97.422 Non-pressure chronic ulcer of left heel and midfoot with fat layer exposed; I25.10 Atherosclerotic heart disease of native coronary artery without angina pectoris; E11.42 Type 2 diabetes mellitus with diabetic polyneuropathy; L89.893 Pressure ulcer of other site, stage 3; I87.2 Venous insufficiency (chronic) (peripheral); L03.90 Cellulitis, unspecified; E11.40 Type 2 diabetes mellitus with diabetic neuropathy, unspecified; I25.2 Old myocardial infarction; E78.00 Pure hypercholesterolemia, unspecified; I11.0 Hypertensive heart disease with heart failure; I50.32 Chronic diastolic (congestive) heart failure | CPT/HCPCS: 96365; G0463; J0696 ==

== ENCOUNTER 2023-11-21 01:22 | Day surgery (SDC) | payer OTHER ==
[2023-11-21] MEDS ORDERED: CefTRIAXone Sodium 1,000 MG in NS 50 ML IV SCH (06:00)
[2023-11-21 10:22] VITALS: BP 165/93
== END 2023-11-21 10:36 | disposition home or self-care (01) ==
LOC: ATC 01:22
DX: L03.90 Cellulitis, unspecified (principal); I11.0 Hypertensive heart disease with heart failure; I50.32 Chronic diastolic (congestive) heart failure; I25.2 Old myocardial infarction; E11.40 Type 2 diabetes mellitus with diabetic neuropathy, unspecified; B35.1 Tinea unguium; Z88.8 Allergy status to other drugs, medicaments and biological substances; Z79.82 Long term (current) use of aspirin; Z79.899 Other long term (current) drug therapy
CPT/HCPCS: 96365; J0696

== ENCOUNTER 2023-11-27 00:16 | Day surgery (SDC) | payer OTHER | END 2023-11-27 22:44 | disposition home or self-care (01) | LOC: WOUND 00:16 | DX: E11.621 Type 2 diabetes mellitus with foot ulcer (principal); L97.422 Non-pressure chronic ulcer of left heel and midfoot with fat layer exposed; L89.893 Pressure ulcer of other site, stage 3; I25.10 Atherosclerotic heart disease of native coronary artery without angina pectoris; E11.42 Type 2 diabetes mellitus with diabetic polyneuropathy | CPT/HCPCS: G0463 ==

== ENCOUNTER 2023-12-02 08:00 | Day surgery (SDC) | payer OTHER | END 2023-12-02 22:47 | disposition home or self-care (01) | LOC: WOUND 08:00 | DX: E11.621 Type 2 diabetes mellitus with foot ulcer (principal); L89.893 Pressure ulcer of other site, stage 3; E11.42 Type 2 diabetes mellitus with diabetic polyneuropathy; I25.10 Atherosclerotic heart disease of native coronary artery without angina pectoris ==

== ENCOUNTER 2023-12-04 05:23 | Day surgery (SDC) | payer OTHER | END 2023-12-04 23:11 | disposition home or self-care (01) | LOC: WOUND 05:23 | DX: E11.621 Type 2 diabetes mellitus with foot ulcer (principal); L97.422 Non-pressure chronic ulcer of left heel and midfoot with fat layer exposed; L89.893 Pressure ulcer of other site, stage 3; E11.40 Type 2 diabetes mellitus with diabetic neuropathy, unspecified; I25.10 Atherosclerotic heart disease of native coronary artery without angina pectoris ==

== ENCOUNTER 2023-12-09 08:00 | Day surgery (SDC) | payer OTHER | END 2023-12-10 22:47 | disposition home or self-care (01) | LOC: WOUND 08:00 | DX: E11.621 Type 2 diabetes mellitus with foot ulcer (principal); L97.422 Non-pressure chronic ulcer of left heel and midfoot with fat layer exposed; I87.2 Venous insufficiency (chronic) (peripheral); E11.42 Type 2 diabetes mellitus with diabetic polyneuropathy ==

== ENCOUNTER 2024-02-10 03:54 | Day surgery (SDC) | payer OTHER | END 2024-02-10 23:19 | disposition home or self-care (01) | LOC: WOUND 03:54 | DX: E11.621 Type 2 diabetes mellitus with foot ulcer (principal); L97.422 Non-pressure chronic ulcer of left heel and midfoot with fat layer exposed; E11.622 Type 2 diabetes mellitus with other skin ulcer; L97.822 Non-pressure chronic ulcer of other part of left lower leg with fat layer exposed; L89.893 Pressure ulcer of other site, stage 3; E11.42 Type 2 diabetes mellitus with diabetic polyneuropathy | CPT/HCPCS: A6213 ==

== ENCOUNTER 2024-04-06 04:14 | Day surgery (SDC) | payer OTHER | END 2024-04-06 22:59 | disposition home or self-care (01) | LOC: WOUND 04:14 | DX: E11.621 Type 2 diabetes mellitus with foot ulcer (principal); L97.422 Non-pressure chronic ulcer of left heel and midfoot with fat layer exposed; L97.412 Non-pressure chronic ulcer of right heel and midfoot with fat layer exposed; I25.10 Atherosclerotic heart disease of native coronary artery without angina pectoris; E11.40 Type 2 diabetes mellitus with diabetic neuropathy, unspecified; E11.42 Type 2 diabetes mellitus with diabetic polyneuropathy; L89.893 Pressure ulcer of other site, stage 3 ==

== ENCOUNTER 2024-04-13 02:35 | Day surgery (SDC) | payer OTHER | END 2024-04-13 23:34 | disposition home or self-care (01) | LOC: WOUND 02:35 | DX: E11.621 Type 2 diabetes mellitus with foot ulcer (principal); L97.422 Non-pressure chronic ulcer of left heel and midfoot with fat layer exposed; L97.412 Non-pressure chronic ulcer of right heel and midfoot with fat layer exposed; E11.42 Type 2 diabetes mellitus with diabetic polyneuropathy; I25.10 Atherosclerotic heart disease of native coronary artery without angina pectoris | CPT/HCPCS: G0463 ==

== ENCOUNTER 2024-04-20 02:05 | Day surgery (SDC) | payer OTHER | END 2024-04-20 04:42 | disposition home or self-care (01) | LOC: WOUND 02:05 | DX: E11.621 Type 2 diabetes mellitus with foot ulcer (principal); L97.422 Non-pressure chronic ulcer of left heel and midfoot with fat layer exposed; L97.412 Non-pressure chronic ulcer of right heel and midfoot with fat layer exposed; E11.42 Type 2 diabetes mellitus with diabetic polyneuropathy; I25.10 Atherosclerotic heart disease of native coronary artery without angina pectoris | CPT/HCPCS: G0463 ==

== ENCOUNTER 2024-04-22 09:44 | Day surgery (SDC) | payer OTHER ==
[~2024-04-22] VITALS: Ht 172.7 cm; Wt 80.6 kg
[~2024-04-22 09:44] MED LIST changes: +Balanced Salt Epinephrine Irrigation Solution 500 mL IR SCH; +Lidocaine HCl/Pf 1% 5 ML VIAL XX SCH; +Moxifloxacin HCL 0.5 MG/0.1 ML 0.4MLSYR LEFTEYE SCH; +NS 500 ML IV ONE; +NS 500 ML ONE; +PHENYLEPHRINE\\TROPICAMIDE\\TETRACAINE OPHTHALMIC DILATING SOLN LEFTEYE PRN; +Povidone-Iodine 450 DROP/30 ML Solution LEFTEYE SCH
[2024-04-22] MEDS ORDERED: Tropicamide 1% Opth Soln 15 ML BTL ONE (10:06)
[2024-04-22] MEDS ORDERED: NS 500 ML IV ONE ×2 (10:09→11:41)
[2024-04-22] MEDS ORDERED: OMEP20ER (10:11)
[2024-04-22] MEDS ORDERED: GLIP10 PO (10:11)
[2024-04-22] MEDS ORDERED: Citric Acid/Sodium Citrate 30 ML BTL ONE (10:30)
[2024-04-22] MEDS ORDERED: FentaNYL Citrate 50 MCG/ML 2 ML Injection ONE (10:51)
[2024-04-22] MEDS ORDERED: Midazolam HCl 1MG / ML 2ML Vial ONE (10:51)
[2024-04-22] MEDS ORDERED: Tetracaine HCl 0.5% Opth Soln 15 ml LEFTEYE ONE (11:08)
[2024-04-22 12:16] VITALS: BP 120/86
== END 2024-04-22 12:02 | disposition home or self-care (01) ==
LOC: ORSCSDS 09:44
PROVIDERS: Student in an Organized Health Care Education/Training Program
PROC: 08RJ3JZ Replacement of Right Lens with Synthetic Substitute, Percutaneous Approach (ICD-10-PCS; principal; 2024-04-22 11:00)
DX: E11.36 Type 2 diabetes mellitus with diabetic cataract (principal); H25.813 Combined forms of age-related cataract, bilateral; E11.319 Type 2 diabetes mellitus with unspecified diabetic retinopathy without macular edema; I10 Essential (primary) hypertension; I25.10 Atherosclerotic heart disease of native coronary artery without angina pectoris; I25.2 Old myocardial infarction; Z79.4 Long term (current) use of insulin; Z79.84 Long term (current) use of oral hypoglycemic drugs; Z79.899 Other long term (current) drug therapy
CPT/HCPCS: 82947; A9270; J2250; J3010; J7040; V2632

== ENCOUNTER 2024-04-27 03:26 | Day surgery (SDC) | payer OTHER ==
[~2024-04-27 03:26] MED LIST changes: -Balanced Salt Epinephrine Irrigation Solution 500 mL IR SCH; +GLIP10 PO; -Lidocaine HCl/Pf 1% 5 ML VIAL XX SCH; -Moxifloxacin HCL 0.5 MG/0.1 ML 0.4MLSYR LEFTEYE SCH; -NS 500 ML IV ONE; -NS 500 ML ONE; +OMEP20ER; -PHENYLEPHRINE\\TROPICAMIDE\\TETRACAINE OPHTHALMIC DILATING SOLN LEFTEYE PRN; -Povidone-Iodine 450 DROP/30 ML Solution LEFTEYE SCH
== END 2024-04-27 23:19 | disposition home or self-care (01) ==
LOC: WOUND 03:26
DX: E11.621 Type 2 diabetes mellitus with foot ulcer (principal); L97.422 Non-pressure chronic ulcer of left heel and midfoot with fat layer exposed; L97.412 Non-pressure chronic ulcer of right heel and midfoot with fat layer exposed; E11.42 Type 2 diabetes mellitus with diabetic polyneuropathy
CPT/HCPCS: G0463

== ENCOUNTER 2024-05-06 08:31 | Day surgery (SDC) | payer OTHER ==
[~2024-05-06] VITALS: Ht 172.7 cm; Wt 80.6 kg
[~2024-05-06 08:31] MED LIST changes: +Balanced Salt Epinephrine Irrigation Solution 500 mL IR SCH; +Lidocaine HCl/Pf 1% 5 ML VIAL XX SCH; +Moxifloxacin HCL 0.5 MG/0.1 ML 0.4MLSYR LEFTEYE SCH; +NS 500 ML IV ONE; +PHENYLEPHRINE\\TROPICAMIDE\\TETRACAINE OPHTHALMIC DILATING SOLN LEFTEYE PRN; +Povidone-Iodine 450 DROP/30 ML Solution LEFTEYE SCH; +Triamcinolone Inj Susp 40 MG / ML 1ML Vial ONE
[2024-05-06] MEDS ORDERED: NS 500 ML IV ONE (10:12)
[2024-05-06] MEDS ORDERED: Midazolam HCl 1MG / ML 2ML Vial ONE (11:04)
[2024-05-06] MEDS ORDERED: Tetracaine HCl 0.5% Opth Soln 15 ml LEFTEYE ONE (11:05)
[2024-05-06 15:17] VITALS: BP 127/87
== END 2024-05-06 11:45 | disposition home or self-care (01) ==
LOC: ORSCSDS 08:31
PROVIDERS: Student in an Organized Health Care Education/Training Program
PROC: 08RK3JZ Replacement of Left Lens with Synthetic Substitute, Percutaneous Approach (ICD-10-PCS; principal; 2024-05-06 11:00)
DX: E11.36 Type 2 diabetes mellitus with diabetic cataract (principal); H25.12 Age-related nuclear cataract, left eye; Z96.1 Presence of intraocular lens; I10 Essential (primary) hypertension; I25.2 Old myocardial infarction; Z99.81 Dependence on supplemental oxygen; Z79.82 Long term (current) use of aspirin; Z79.899 Other long term (current) drug therapy
CPT/HCPCS: 82947; J2250; J3301; J7040; V2632

== ENCOUNTER 2024-05-11 06:48 | Day surgery (SDC) | payer OTHER ==
[~2024-05-11 06:48] MED LIST changes: -Balanced Salt Epinephrine Irrigation Solution 500 mL IR SCH; -Lidocaine HCl/Pf 1% 5 ML VIAL XX SCH; -Moxifloxacin HCL 0.5 MG/0.1 ML 0.4MLSYR LEFTEYE SCH; -NS 500 ML IV ONE; -PHENYLEPHRINE\\TROPICAMIDE\\TETRACAINE OPHTHALMIC DILATING SOLN LEFTEYE PRN; -Povidone-Iodine 450 DROP/30 ML Solution LEFTEYE SCH; -Triamcinolone Inj Susp 40 MG / ML 1ML Vial ONE
== END 2024-05-12 00:02 | disposition home or self-care (01) ==
LOC: WOUND 06:48
DX: E11.621 Type 2 diabetes mellitus with foot ulcer (principal); L97.422 Non-pressure chronic ulcer of left heel and midfoot with fat layer exposed; L97.412 Non-pressure chronic ulcer of right heel and midfoot with fat layer exposed; L89.893 Pressure ulcer of other site, stage 3; I25.10 Atherosclerotic heart disease of native coronary artery without angina pectoris; E11.42 Type 2 diabetes mellitus with diabetic polyneuropathy
CPT/HCPCS: G0463

== ENCOUNTER 2024-06-08 00:52 | Day surgery (SDC) | payer OTHER | END 2024-06-09 22:51 | disposition home or self-care (01) | LOC: WOUND 00:52 | DX: E11.621 Type 2 diabetes mellitus with foot ulcer (principal); L89.893 Pressure ulcer of other site, stage 3; E11.42 Type 2 diabetes mellitus with diabetic polyneuropathy | CPT/HCPCS: G0463 ==

== ENCOUNTER 2024-06-22 02:15 | Day surgery (SDC) | payer OTHER | END 2024-06-22 23:00 | disposition home or self-care (01) | LOC: WOUND 02:15 | DX: E11.621 Type 2 diabetes mellitus with foot ulcer (principal); L97.422 Non-pressure chronic ulcer of left heel and midfoot with fat layer exposed; L97.412 Non-pressure chronic ulcer of right heel and midfoot with fat layer exposed; L89.893 Pressure ulcer of other site, stage 3; E11.42 Type 2 diabetes mellitus with diabetic polyneuropathy; I25.10 Atherosclerotic heart disease of native coronary artery without angina pectoris | CPT/HCPCS: G0463 ==

== ENCOUNTER 2024-07-06 03:55 | Day surgery (SDC) | payer OTHER | END 2024-07-07 23:00 | disposition home or self-care (01) | LOC: WOUND 03:55 | DX: E11.621 Type 2 diabetes mellitus with foot ulcer (principal); L97.425 Non-pressure chronic ulcer of left heel and midfoot with muscle involvement without evidence of necrosis; L97.412 Non-pressure chronic ulcer of right heel and midfoot with fat layer exposed; E11.42 Type 2 diabetes mellitus with diabetic polyneuropathy; L89.893 Pressure ulcer of other site, stage 3; I25.10 Atherosclerotic heart disease of native coronary artery without angina pectoris | CPT/HCPCS: G0463 ==

== ENCOUNTER 2024-07-13 04:41 | Day surgery (SDC) | payer OTHER | END 2024-07-14 23:12 | disposition home or self-care (01) | LOC: WOUND 04:41 | DX: E11.621 Type 2 diabetes mellitus with foot ulcer (principal); L89.893 Pressure ulcer of other site, stage 3; E11.42 Type 2 diabetes mellitus with diabetic polyneuropathy | CPT/HCPCS: G0463 ==

== ENCOUNTER 2024-07-20 01:44 | Day surgery (SDC) | payer OTHER | END 2024-07-20 23:00 | disposition home or self-care (01) | LOC: WOUND 01:44 | DX: L89.892 Pressure ulcer of other site, stage 2 (principal); L89.891 Pressure ulcer of other site, stage 1; E11.621 Type 2 diabetes mellitus with foot ulcer; E11.42 Type 2 diabetes mellitus with diabetic polyneuropathy; I25.10 Atherosclerotic heart disease of native coronary artery without angina pectoris | CPT/HCPCS: G0463 ==

== ENCOUNTER → 2024-07-27 | Day surgery (SDC) | payer OTHER | LOC: WOUND 02:30 | DX: E11.621 Type 2 diabetes mellitus with foot ulcer (principal); L97.425 Non-pressure chronic ulcer of left heel and midfoot with muscle involvement without evidence of necrosis; L97.412 Non-pressure chronic ulcer of right heel and midfoot with fat layer exposed; E11.42 Type 2 diabetes mellitus with diabetic polyneuropathy; E11.51 Type 2 diabetes mellitus with diabetic peripheral angiopathy without gangrene; I25.10 Atherosclerotic heart disease of native coronary artery without angina pectoris; I25.2 Old myocardial infarction | CPT/HCPCS: G0463 ==

== ENCOUNTER 2024-08-03 02:47 | Day surgery (SDC) | payer OTHER | END 2024-08-03 23:00 | disposition home or self-care (01) | LOC: WOUND 02:47 | DX: E11.621 Type 2 diabetes mellitus with foot ulcer (principal); L97.425 Non-pressure chronic ulcer of left heel and midfoot with muscle involvement without evidence of necrosis; L97.412 Non-pressure chronic ulcer of right heel and midfoot with fat layer exposed; E11.42 Type 2 diabetes mellitus with diabetic polyneuropathy; E11.51 Type 2 diabetes mellitus with diabetic peripheral angiopathy without gangrene; I25.10 Atherosclerotic heart disease of native coronary artery without angina pectoris; I25.2 Old myocardial infarction | CPT/HCPCS: G0463 ==

== ENCOUNTER 2024-08-10 02:46 | Day surgery (SDC) | payer OTHER | END 2024-08-10 23:49 | disposition home or self-care (01) | LOC: WOUND 02:46 | DX: E11.621 Type 2 diabetes mellitus with foot ulcer (principal); L97.425 Non-pressure chronic ulcer of left heel and midfoot with muscle involvement without evidence of necrosis; L97.412 Non-pressure chronic ulcer of right heel and midfoot with fat layer exposed; E11.42 Type 2 diabetes mellitus with diabetic polyneuropathy; E11.51 Type 2 diabetes mellitus with diabetic peripheral angiopathy without gangrene; I25.10 Atherosclerotic heart disease of native coronary artery without angina pectoris; I25.2 Old myocardial infarction; E11.610 Type 2 diabetes mellitus with diabetic neuropathic arthropathy; E11.319 Type 2 diabetes mellitus with unspecified diabetic retinopathy without macular edema; Z79.4 Long term (current) use of insulin | CPT/HCPCS: 82043; 82570; G0463 ==

== ENCOUNTER → 2024-08-10 | Outpatient (CLI) | payer OTHER ==
[2024-08-10 21:47] LABS: Microalb/Creat Ratio UR, Rand 65.73 mg/g (0.000-30.000)
== END ==
LOC: LAB SHORT 15:47 → LAB 15:47
PROVIDERS: Nurse Practitioner Family
DX: E11.610 Type 2 diabetes mellitus with diabetic neuropathic arthropathy (principal); E11.319 Type 2 diabetes mellitus with unspecified diabetic retinopathy without macular edema; Z79.4 Long term (current) use of insulin
CPT/HCPCS: 82043; 82570

== ENCOUNTER 2024-08-17 02:00 | Day surgery (SDC) | payer OTHER | END 2024-08-18 00:18 | disposition home or self-care (01) | LOC: WOUND 02:00 | DX: E11.621 Type 2 diabetes mellitus with foot ulcer (principal); L97.425 Non-pressure chronic ulcer of left heel and midfoot with muscle involvement without evidence of necrosis; L97.412 Non-pressure chronic ulcer of right heel and midfoot with fat layer exposed; I25.10 Atherosclerotic heart disease of native coronary artery without angina pectoris; L89.893 Pressure ulcer of other site, stage 3; E11.42 Type 2 diabetes mellitus with diabetic polyneuropathy | CPT/HCPCS: G0463 ==

== ENCOUNTER 2024-09-14 01:06 | Day surgery (SDC) | payer OTHER ==
[2024-09-14] MEDS ORDERED: Silver Nitr/Potassium Nitrate 1 EA APPL ONE (10:02)
== END 2024-09-14 23:00 | disposition home or self-care (01) ==
LOC: WOUND 01:06
DX: E11.621 Type 2 diabetes mellitus with foot ulcer (principal); L89.893 Pressure ulcer of other site, stage 3; E11.42 Type 2 diabetes mellitus with diabetic polyneuropathy
CPT/HCPCS: A9270

== ENCOUNTER 2024-09-28 03:11 | Day surgery (SDC) | payer OTHER ==
[2024-09-28] MEDS ORDERED: Silver Nitr/Potassium Nitrate 1 EA APPL ONE (09:46)
== END 2024-09-28 23:00 | disposition home or self-care (01) ==
LOC: WOUND 03:11
DX: E11.621 Type 2 diabetes mellitus with foot ulcer (principal); L97.425 Non-pressure chronic ulcer of left heel and midfoot with muscle involvement without evidence of necrosis; L97.412 Non-pressure chronic ulcer of right heel and midfoot with fat layer exposed; E11.40 Type 2 diabetes mellitus with diabetic neuropathy, unspecified; I25.10 Atherosclerotic heart disease of native coronary artery without angina pectoris; L89.893 Pressure ulcer of other site, stage 3; E11.42 Type 2 diabetes mellitus with diabetic polyneuropathy
CPT/HCPCS: A9270

== ENCOUNTER 2024-10-05 05:38 | Day surgery (SDC) | payer OTHER | END 2024-10-07 23:00 | disposition home or self-care (01) | LOC: WOUND 05:38 | DX: E11.621 Type 2 diabetes mellitus with foot ulcer (principal); L97.523 Non-pressure chronic ulcer of other part of left foot with necrosis of muscle; L97.512 Non-pressure chronic ulcer of other part of right foot with fat layer exposed; E11.42 Type 2 diabetes mellitus with diabetic polyneuropathy; I25.10 Atherosclerotic heart disease of native coronary artery without angina pectoris | CPT/HCPCS: G0463 ==

== ENCOUNTER 2024-10-19 03:38 | Day surgery (SDC) | payer OTHER | END 2024-10-19 23:00 | disposition home or self-care (01) | LOC: WOUND 03:38 | DX: E11.621 Type 2 diabetes mellitus with foot ulcer (principal); L97.425 Non-pressure chronic ulcer of left heel and midfoot with muscle involvement without evidence of necrosis; L97.412 Non-pressure chronic ulcer of right heel and midfoot with fat layer exposed; E11.42 Type 2 diabetes mellitus with diabetic polyneuropathy; I25.10 Atherosclerotic heart disease of native coronary artery without angina pectoris | CPT/HCPCS: G0463 ==

== ENCOUNTER 2024-11-09 06:15 | Day surgery (SDC) | payer OTHER | END 2024-11-09 23:00 | disposition home or self-care (01) | LOC: WOUND 06:15 | DX: E11.621 Type 2 diabetes mellitus with foot ulcer (principal); L97.425 Non-pressure chronic ulcer of left heel and midfoot with muscle involvement without evidence of necrosis; L97.412 Non-pressure chronic ulcer of right heel and midfoot with fat layer exposed; L89.893 Pressure ulcer of other site, stage 3; I25.10 Atherosclerotic heart disease of native coronary artery without angina pectoris; E11.42 Type 2 diabetes mellitus with diabetic polyneuropathy ==

== ENCOUNTER 2024-11-23 00:57 | Day surgery (SDC) | payer OTHER | END 2024-11-23 23:00 | disposition home or self-care (01) | LOC: WOUND 00:57 | DX: E11.621 Type 2 diabetes mellitus with foot ulcer (principal); L97.425 Non-pressure chronic ulcer of left heel and midfoot with muscle involvement without evidence of necrosis; L97.412 Non-pressure chronic ulcer of right heel and midfoot with fat layer exposed; E11.42 Type 2 diabetes mellitus with diabetic polyneuropathy; I25.10 Atherosclerotic heart disease of native coronary artery without angina pectoris | CPT/HCPCS: G0463 ==

== ENCOUNTER 2024-12-07 00:32 | Day surgery (SDC) | payer OTHER | END 2024-12-07 23:00 | disposition home or self-care (01) | LOC: WOUND 00:32 | DX: E11.621 Type 2 diabetes mellitus with foot ulcer (principal); L97.425 Non-pressure chronic ulcer of left heel and midfoot with muscle involvement without evidence of necrosis; L97.411 Non-pressure chronic ulcer of right heel and midfoot limited to breakdown of skin; E11.42 Type 2 diabetes mellitus with diabetic polyneuropathy; I25.10 Atherosclerotic heart disease of native coronary artery without angina pectoris ==

== ENCOUNTER 2024-12-21 02:24 | Day surgery (SDC) | payer OTHER | END 2024-12-21 23:00 | disposition home or self-care (01) | LOC: WOUND 02:24 | DX: E11.621 Type 2 diabetes mellitus with foot ulcer (principal); L97.425 Non-pressure chronic ulcer of left heel and midfoot with muscle involvement without evidence of necrosis; E11.42 Type 2 diabetes mellitus with diabetic polyneuropathy; I25.10 Atherosclerotic heart disease of native coronary artery without angina pectoris | CPT/HCPCS: G0463 ==

== ENCOUNTER 2025-01-04 02:22 | Day surgery (SDC) | payer OTHER | END 2025-01-04 23:02 | disposition home or self-care (01) | LOC: WOUND 02:22 | DX: E11.621 Type 2 diabetes mellitus with foot ulcer (principal); L97.425 Non-pressure chronic ulcer of left heel and midfoot with muscle involvement without evidence of necrosis; L89.893 Pressure ulcer of other site, stage 3; E11.42 Type 2 diabetes mellitus with diabetic polyneuropathy | CPT/HCPCS: A6196; G0463 ==

== ENCOUNTER 2025-01-25 01:38 | Day surgery (SDC) | payer OTHER | END 2025-01-25 23:00 | disposition home or self-care (01) | LOC: WOUND 01:38 | DX: E11.621 Type 2 diabetes mellitus with foot ulcer (principal); L97.423 Non-pressure chronic ulcer of left heel and midfoot with necrosis of muscle; I25.10 Atherosclerotic heart disease of native coronary artery without angina pectoris; L89.893 Pressure ulcer of other site, stage 3; E11.42 Type 2 diabetes mellitus with diabetic polyneuropathy | CPT/HCPCS: A6196 ==

== ENCOUNTER 2025-02-15 05:48 | Day surgery (SDC) | payer OTHER | END 2025-02-15 23:00 | disposition home or self-care (01) | LOC: WOUND 05:48 | DX: E11.621 Type 2 diabetes mellitus with foot ulcer (principal); L97.422 Non-pressure chronic ulcer of left heel and midfoot with fat layer exposed; E11.42 Type 2 diabetes mellitus with diabetic polyneuropathy; I25.10 Atherosclerotic heart disease of native coronary artery without angina pectoris | CPT/HCPCS: A6196; G0463 ==

== ENCOUNTER → 2025-04-12 | Outpatient (CLI) | payer OTHER | LOC: LAB 19:12 → LAB SHORT 19:12 | DX: H60.12 Cellulitis of left external ear (principal) | CPT/HCPCS: 87070; 87205 ==

== ENCOUNTER 2025-04-20 04:16 | Day surgery (SDC) | payer OTHER | END 2025-04-20 22:00 | disposition home or self-care (01) | LOC: WOUND 04:16 | DX: E11.621 Type 2 diabetes mellitus with foot ulcer (principal); L97.425 Non-pressure chronic ulcer of left heel and midfoot with muscle involvement without evidence of necrosis; E11.42 Type 2 diabetes mellitus with diabetic polyneuropathy | CPT/HCPCS: A6196; G0463 ==

== ENCOUNTER 2025-06-23 01:53 | Day surgery (SDC) | payer OTHER | END 2025-06-23 23:00 | disposition home or self-care (01) | LOC: WOUND 01:53 | DX: E11.621 Type 2 diabetes mellitus with foot ulcer (principal); L97.525 Non-pressure chronic ulcer of other part of left foot with muscle involvement without evidence of necrosis; E11.42 Type 2 diabetes mellitus with diabetic polyneuropathy; I25.10 Atherosclerotic heart disease of native coronary artery without angina pectoris | CPT/HCPCS: A6196; G0463 ==

== ENCOUNTER 2025-07-23 01:38 | Day surgery (SDC) | payer OTHER | END 2025-07-23 23:00 | disposition home or self-care (01) | LOC: WOUND 01:38 | DX: E11.621 Type 2 diabetes mellitus with foot ulcer (principal); L97.425 Non-pressure chronic ulcer of left heel and midfoot with muscle involvement without evidence of necrosis; E11.42 Type 2 diabetes mellitus with diabetic polyneuropathy; I25.10 Atherosclerotic heart disease of native coronary artery without angina pectoris; L89.893 Pressure ulcer of other site, stage 3; L97.529 Non-pressure chronic ulcer of other part of left foot with unspecified severity | CPT/HCPCS: 73630; A6196; A9270 ==

== ENCOUNTER 2025-08-20 00:28 | Day surgery (SDC) | payer OTHER | END 2025-08-20 23:00 | disposition home or self-care (01) | LOC: WOUND 00:28 | DX: E11.621 Type 2 diabetes mellitus with foot ulcer (principal); L97.425 Non-pressure chronic ulcer of left heel and midfoot with muscle involvement without evidence of necrosis; L89.893 Pressure ulcer of other site, stage 3; E11.42 Type 2 diabetes mellitus with diabetic polyneuropathy; I25.10 Atherosclerotic heart disease of native coronary artery without angina pectoris; Z99.81 Dependence on supplemental oxygen | CPT/HCPCS: A6196; G0463 ==

== ENCOUNTER 2025-09-17 02:35 | Day surgery (SDC) | payer OTHER | END 2025-09-17 23:00 | disposition home or self-care (01) | LOC: WOUND 02:35 | DX: E11.621 Type 2 diabetes mellitus with foot ulcer (principal); L97.422 Non-pressure chronic ulcer of left heel and midfoot with fat layer exposed; E11.42 Type 2 diabetes mellitus with diabetic polyneuropathy; I25.10 Atherosclerotic heart disease of native coronary artery without angina pectoris | CPT/HCPCS: A6196 ==